=== PATIENT | female | born 1985 | race Caucasian/White ===

== ENCOUNTER 2016-06-19 22:14 | Emergency (ER) | payer OTHER ==
[~2016-06-19] VITALS: Ht 154.9 cm; Wt 69.9 kg
[~2016-06-19 22:14] MED LIST: LEVOIUD VAGRING
[2016-06-19 22:19] VITALS: TEMP 37; Ht 154.9 cm; Wt 69.9 kg
[2016-06-19] MEDS ORDERED: ACETAMINOPHEN 500 MG TAB PO STA (22:41)
[2016-06-19] MEDS ORDERED: ONDANSETRON 4MG OD TAB PO ONE (22:45)
[2016-06-19] MEDS ORDERED: ONDANSETRON HOME PACK 4MG OD TAB PO ONE (22:45)
[2016-06-19] MEDS ORDERED: NORGTAB39 PO (22:53)
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
[2016-06-20 00:05] VITALS: BP 98/51; PULSE 83; O2SAT 98
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
--- NOTE | 2016-06-20 07:28 | DIAGNOSTIC IMAGING REPORT ---
LEFT TIBIA/FIBULAR 2 VIEWS HISTORY: Fall. left mid escobar pain COMPARISON: None. FINDINGS: There is no fracture or dislocation. Soft tissues are unremarkable. No radiopaque foreign bodies. IMPRESSION: No fractures. Electronically signed by: Tylor Welsh M.D. 06/20/2016 7:26 AM Dictated Date/Time: 06/20/2016 7:25 AM
== END 2016-06-20 00:05 | disposition home or self-care (01) ==
LOC: C.EDB 22:14 → C.EDC 06-20 00:05
DX: S09.90XA Unspecified injury of head, initial encounter (principal); S80.811A Abrasion, right lower leg, initial encounter; S80.812A Abrasion, left lower leg, initial encounter; W22.8XXA Striking against or struck by other objects, initial encounter; Z90.49 Acquired absence of other specified parts of digestive tract; Z83.3 Family history of diabetes mellitus

== ENCOUNTER 2023-01-16 07:42 | Inpatient (IN) ==
[2023-01-16] MEDS ORDERED: OXYTOCIN 30 UNITS/NSS 30 UNITS/500 ML BAG IV PRN ×3 (07:51→15:50)
[2023-01-16] MEDS ORDERED: LIDOCAINE 1% LOCAL 20 ML VIAL INFIL PRN (07:51)
[2023-01-16 08:28] LABS: Hemoglobin 10.3 g/dl (12.0-16.0); Mean Corpuscular Hemoglobin 30.7 pg (25.0-34.0); Mean Corpuscular Hgb Conc 33.2 g/dL (32.0-36.0); Mean Corpuscular Volume 92.5 fL (80.0-100.0); Mean Platelet Volume 11.8 fL (9.4-12.4); Platelet Count 178 K/uL (130-400); RDW Coefficient of Variation 12.9 % (11.5-14.5); RDW Standard Deviation 43.1 fL (36.4-46.3); Red Blood Count 3.35 M/uL (4.20-5.40); White Blood Count 8.37 K/ul (4.8-10.8)
--- NOTE | 2023-01-16 08:43 | History & Physical Report ---
Date of Service January 16, 2023 Assessment & Plan (1) Gestational diabetes, diet controlled: Plan: 37-year-old -0-0-2 at 39 weeks and 4 days of gestation presenting today for induction of labor at term for GDM 1 and polyhydramnios, Vital signs stable afebrile, heart rate reassuring, GBS negative, Cervix favorable Plan to admit, monitor, labs, IV oxytocin per protocol, anticipate All questions were answered. (2) Irregular uterine contractions: (3) Polyhydramnios affecting in third trimester: (4) AMA (advanced maternal age) multigravida 35+: Admission and Anticipated Discharge Date Admission Date: January 16, 2023 History of Present Illness Primary Care Provider: NO PCP Patient is a 37-year-old -0-0-2 at 39 weeks and 4 day gestation who has been feeling irregular contractions for the last weeks but they stopped. She was scheduled for IOL at term for favorable cervix and polyhydramnios. JOEY was 23.7 and EFW 3400 gr on 01/12/23 No complaints today. No LOF/VB +FM Her has been complicated by, 1. GDM A1, diet-controlled gestational diabetes, gained 48 pounds 2. AMA, NIPT low risk, declined MSAFP, Allergies Allergy/AdvReac Type Severity Reaction Status Date / Time tuberculin, purified protein Allergy Severe REDNESS & Verified 01/16/23 08:31 deriva SWELLING AT SITE Home Medications Medication Instructions Recorded Confirmed Type Prilosec OTC 20 mg PO DAILY 01/06/23 01/06/23 History ferrous sulfate 325 mg (65 mg 325 mg PO DAILY 01/06/23 01/06/23 History iron) capsule,extended release [id number] 1 mg 1 tab PO DAILY 01/06/23 01/06/23 History tablet ferrous sulfate 325 mg (65 mg 325 mg PO DAILY #60 tabs 01/07/23 01/16/23 Rx iron) tablet vit no.95-ferrous 1 tab PO DAILY #90 tabs 01/07/23 01/16/23 Rx fumarate 28 mg-folic acid 800 mcg tablet Patient History Surgical History History of appendectomy Hx of cholecystectomy Social History Smoking Status: Former smoker Hx Alcohol Use: No Hx Substance Use: No Beliefs That Will Affect Care: None marital status: Single Current Living Situation: Significant Other Other Information That Helps Us Care for You: No Feels Safe at Home: Yes Safety Concerns: Feels Safe At This Time Assistive Devices: None OB History Full-term 's, 11 and 13 years ago, no complications 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 No history of STDs, no history of herpes, chlamydia, gonorrhea Review of Systems as per Subjective / HPI Physical Exam Constitutional: WD/WN, vitals as above well developed, well nourished and comfortable Genitourinary: normal external appearance OB Exam Abdomen: + vertex Manual OB Exam: + cervical dilation 2 cm, + cervical effacement 70% and + station -2 OB Exam Monitor Tracing: + external uterine monitor used and + category I Results & Data Vital Signs (Past 12 Hours) Vital Signs Temp Pulse BP 01/16/23 07:59 99 H 98/60 L 01/16/23 07:49 36.4 C L Laboratory Results Lab Results 01/16/23 Range/Units 08:05 WBC 8.37 (4.8-10.8) K/ul RBC 3.35 L (4.20-5.40) M/uL Hgb 10.3 L (12.0-16.0) g/dl Hct 31.0 L (37.0-47.0) % MCV 92.5 (80.0-100.0) fL MCH 30.7 (25.0-34.0) pg MCHC 33.2 (32.0-36.0) g/dL RDW Std Deviation 43.1 (36.4-46.3) fL RDW Coeff of Sohan 12.9 (11.5-14.5) % Plt Count 178 (130-400) K/uL MPV 11.8 (9.4-12.4) fL Code Status & VTE Plan VTE Prophylaxis Plan VTE Prophylaxis will be ordered: No (1) Gestational diabetes, diet controlled Trimester: third trimester Qualified Code(s): O24.410 - Gestational diabetes mellitus in , diet controlled
[2023-01-16] MEDS: LACTATED RINGER'S 1,000 ML IV PRN ×2 (09:08→12:23)
--- OUTSIDE RECORDS SUMMARY | 2023-01-16 09:10 | External Medical Summary | Summary of Care ---
Author Name Unknown Organization [facility] Address [address] [facility] [place] [address] Phone [phone] Care Team Providers Care Continuing Education Dean Name Role Phone Jourdan Olguin MD Primary Care Provider [phone] Reason for Visit * Reason Comments Return Visit Encounter Details Date Type Department Care Team (Late st Contact Info) Description 01/12/2023 11:15 AM EST Office Visit Gynecology/Obstetric s [facility] [address] [place] [address] Sue George CRNP [address] [place] [address] Supervision of high-risk , third trimester*; Multigravida of advanced maternal age in third trimester; Diet controlled gestational diabetes mellitus (GDM) in third trimester; Family history of von Willebrand disease; Uterine size date discrepancy ; Other specified related conditions, third trimester Allergies Active Allergy Reactions Criticality Noted Date Comments Tuberculin Ppd 03/07/2010 Should get preservative free in future documented as of this encounter (statuses as of 01/12/2023) Medications Medication Sig Dispensed Refills Start Date End Date Status Gummies 0.18-25 MG Oral Tablet Chewable Take by mouth. 0 Activ e B Complex Oral Capsule Take 1 Capsule by mouth in the morning. 0 Active Ventolin HFA 108 (90 Base) MCG/ACT Inhalation Aerosol SolutionIndications :Acute bronchitis, antibiotics not indicated Inhale 2 Puffs by mouth every 4 hours as needed for Wheezing or Dyspnea. 1 g 0 07/26/2022 Active Ferrous Sulfate 325 (65 Fe) MG Oral Tablet (Feosol) Take 1 Tablet by mouth daily. 30 Tablet 3 10/05/2022 Active Docusate Sodium 100 MG Oral Capsule (Colace) Take 1 Capsule by mouth daily as needed for Constipation. 30 Capsule 2 10/05/2022 Active Omeprazole 20 MG Oral Capsule Delayed Release (PriLOSEC) Take 1 Capsule by mouth in the morning. 30 Capsule 1 10/12/2022 Active Additional Information Patient not taking.Reported on 12/08/2022 TopDeejaysuch Ultra 2 w/Device KitIndications:Gest ational diabetes mellitus (GDM) in third trimester, gestational diabetes method of control unspecified Test blood sugars 4 times a day (fasting and one hour after 3 meals). 1 Kit 0 11/03/2022 Active TopDeejaysuch Ultra In Vitro Strip (Glucose Blood)Indications:G estational diabetes mellitus (GDM) in third trimester, gestational diabetes method of control unspecified Test blood sugars 4 times a day (fasting and one hour after 3 meals). 120 Strip 3 11/03/2022 Active LancetsIndications: Gestational diabetes mellitus (GDM) in third trimester, gestational diabetes method of control unspecified Test blood sugars 4 times a day (fasting and one hour after 3 meals). 120 Each 3 11/03/2022 Active documented as of this encounter (statuses as of 01/12/2023) Active Problems Problem Noted Date Diagnosed Date Genetic testing 12/13/2022 Overview: NEGATIVE familial hypercholesterolemia panel (4 genes). See scan reports from 11.27.2022 Current with histo ry of pre-term labor in third trimester 12/12/2022 Family history of von Willebrand disease 023 Overview: Patient's father with history of Von Willebrand's disease. Patient has never been tested for same. Agreeable to genetic counseling referral. Gestational diabetes mellitus (GDM) in third tri [facility] 11/08/2022 Overview: Diagnosed at 29 weeks Nutrition referral ordered Has TopDeejaysuch Ultra2 meter Lab Results Component Value Date/Time 50-G GESTATIONAL GLUCOSE, 1 HOUR - [facility] 146 (H) 10/26/2022 12:22 PM 100-G GESTATIONAL GLUCOSE, 1 HOUR - [facility] 192 (H) 11/02/2022 09:02 AM 100-G GESTATIONAL GLUCOSE, 2 HOUR - [facility] 165 (H) 11/02/2022 10:00 AM 100-G GESTATIONAL GLUCOSE, 3 HOUR - [facility] 94 11/02/2022 10:59 AM 100-G GESTATIONAL GLUCOSE, FASTING - [facility] 78 11/02/2022 07:53 AM HEMOGLOBIN A1C - [facility] 5.2 08/29/2018 02:49 PM 11/09/22: MFM ADAPT consult complete. Enrolled in [employer]. Instructions provided to report blood sugars each week for MFM review; continue diet controlled 11/14/22: RPM Stable; diet controlled 11/20/22- stable 11/27/22-stable 12/05/22: RPM Stable --KW 12/12/22- stable 12/19/22- stable 12/26/22- stable 01/02/23-stable 01/09/23- stable Last Assessment & Plan: Hortensia states sugars have been under excellent control on diet. Encouraged her to continue to submit to ADAPT. Multigravida of advanced maternal age in third t rimester 06/14/2022 Overview: Age 37 at ADELSO Qnatal low risk. Declines MSAFP testing. Declines MATERNAL MEDICINE referral. Supervision of high-risk , [facility] 06/14/2022 Overview: Estimated Date of Delivery: 01/19/23 Continue vitamin A positive. Rubella and varicella immune. Qnatal testing low risk. Declines MSAFP testing. Declines MATERNAL MEDICINE referral. S/p anatomy ultrasound. Has GDM. Hemoglobin is stable. Tdap vaccine completed. GBS culture at 36 weeks. contraception: tubal ligation. Desires to breastfeed. Getting breast pump through insurance. Note: Desires [facility] delivery. Advised patient to transfer care at 36 weeks. 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 Degeneration of lumbar intervertebral disc 02/15 Nolan's esophagus without dysplasia 08/07/2017 S/P laparoscopic fundoplication 08/07/2017 Gastroesophageal reflux disease without esophagi tis 07/19/2017 Estimated Date of Delivery Comme nts Yes 01/19/2023 Based on Ultraso und documented as of this encounter (statuses as of 01/12/2023) Resolved Problems Problem Noted Date Diagnosed Date Resolved Date Low-lying placenta 08/29/2022 3 Malaise and fatigue 10/11/2018 10/05/19 23 Low libido 10/11/2018 10/04/2022 Suprascapular neuropathy, right 12/19/2016 10/04/2022 UNSPECIFIED GASTRITIS 03/29/20102015 Abdominal pain, epigastric 03/29/2010 1 Acute pancreatitis 03/29/2010 6 Anxiety state 03/18/2010 10/04/2022 DIZZINESS 03/18/2010 11/24/2015 Shortness of breath 03/18/2010 11/24/19 16 Chest pain 03/18/2010 11/24/2015 Nausea 03/18/2010 11/24/2015 Overview: ICD-10 update of inactive term Irritable bowel syndrome 06/27/2004 Viral warts 05/26/2003 07/26/2016 Overview: ICD-10 update of inactive term ACUTE PHARYNGITIS 07/18/2002 06/09/2003 ACUTE URI NOS 07/18/2002 06/09/2003 Allergic rhinitis 07/18/2002 07/26/2016 THUMB, RIGHT HAND INJURY 06/26/2000 documented as of this encounter (statuses as of 01/12/2023) Immunizations Name Administration Dates Next Due SEASONAL INFLUENZA, PF, 6 M & Above, IM , (FLULAVAL or FLUZONE) 12/04/2018,01/06/2017 Seasonal Influenza, Split, I IV3, With Preserve, Inj 12/07/2015,12/16/2012,11/26/2009 12/16/2013 TDAP (age 10 and older)(Boostrix) 10/26/2022 TDAP (age 11 and older)(Adacel) 11/26/2009 documented as of this encounter Social History Tobacco Use Types Packs/Day Years Used Date Smoking Tobacco: Former Cigarettes 0.5 1 Q uit: 02/05/2004 Smokeless Tobacco: Never Alcohol Use Standard Drinks/Week Comments No 0 (1 standard drink = 0.6 oz pur e alcohol) denies in 2022 PHQ-2 Answer Date Recorded PHQ Adult Total Score 0 10/04/2022 Hunger Vital Sign Answer Date Recorded Within the past 12 months, y ou worried that your food would run out before you got the money to buy more. Never true 09/06/19 23 Within the past 12 months, t he food you bought just didn't last and you didn't have money to get more. Never true 09/05/2022 [place] Depression Scale Answer Date Recorded [place] Depression Scale Total 0 12/08/2022 The thought of harming myself has occurred to me . Never 12/08/2022 Estimated Date of Delivery Comme nts Yes 01/19/2023 Based on Ultraso und Sex and Gender Information Value Date Recorded Sex Assigned at Female 05/31/2022 9:11 PM EDT Gender Identity Female 05/31/2022 9:11 PM EDT Sexual Orientation Straight 05/31/2022 9: 11 PM EDT Job Start Date Occupation Industry Not on file Not on file Not on file documented as of this encounter Last Filed Vital Signs Vital Sign Reading Time Taken Comments Blood Pressure 112/64 01/12/2023 11:09 AM EST Pulse - - Temperature - - Respiratory Rate - - Oxygen Saturation - - Inhaled Oxygen Concentration - - Weight 80.3 kg (177 lb) 01/12/2023 11:09 AM EST Height 160 cm (5' 3") 01/12/2023 11:09 AM EST Body Mass Index 31.35 01/12/2023 11:09 AM EST documented in this encounter Functional Status Functional Status Response Date of Assess ment Are you deaf or do you have serious difficulty h earing? No 07/18/2017 Are you blind or do you have serious difficulty seeing, even when wearing glasses? No 07/18/2017 Do you have serious difficul ty walking or climbing stairs? (5 years old or older) No 07/18/2017 Do you have difficulty dress ing or bathing? (5 years old or older) No 07/18/2017 Because of a physical, menta l, or emotional condition, do you have difficulty doing errands alone such as visiting a doctor s office or shopping? (15 years old or older) No 07/19/19 18 Cognitive Status Response Date of Assessm ent Because of a physical, menta l, or emotional condition, do you have serious difficulty concentrating, remembering, or making decisions? (5 years old or older) No 07/18/2017 documented as of this encounter Progress Notes * Sue George CRNP - 01/12/2023 11:11 AM EST 39w0d GDMA1, submits glucose readings for ADAPT review. Baby is active. No leaking/bleeding. Still with ctx, q10-25 mins. Desires cervical exam. 3-4 cm. S>D. Growth scan today, preliminary read shows EFW 47%, JOEY 23.7 cm. Pt agreeable to scheduling IOL due to GDMA 1, scheduled on 01/16. Pt aware. Labor precautions reviewed. Return in 1 week. Electrical Installation Inspector Documentation Provider requested retail property manager. Name of retail property manager: KRISSY Arevalo LPN * Katie Chiu LPN - 01/12/2023 11:09 AM EST 39w0d Would like cervix checked Went to L&D last sat and was 3 cm dilated documented in this encounter Plan of Treatment Health Maintenance Due Date Last Done Comments COVID-19 Vaccine (#1) 1986 Influenza Vaccine (FLU shot) (#1) 2022 12/04/2018, 01/06/2017, 12/07/2015, Additional history exists Depression Screening 10/05/2023 10/04/2022 Nolan's Esophagus Surveilance 10/24/2024 10/24/2021, 08/16/2020, 12/26/2018, Additional history exists Diabetes Screening 01/06/2026 01/06/2023, 0 08/27/2021, 09/12/2019, Additional history exists PAP SMEAR-EVERY 5 YRS,AGES 21-100 06/20/2026 06/20/2021, 10/14/2018, 02/13/2017, Additional history exists DTaP,Tdap,and Td Vaccines (8 - Td or Tdap) 10/26/2032 10/26/2022, 11/26/2009, 02/25/2002, Additional history exists Hepatitis B Completed 08/25/1998, 02/05, 12/28/1997 Pap Smear Discontinued 06/20/2021, 10/2018, 02/13/2017, Additional history exists GARDASIL-HPV IMMUNIZATION SERIES Aged Out No longer eligible based on patient's age to complete this topic MENINGOCOCCAL (MENACTRA/MENVEO) Aged Out No longer eligible based on patient's age to complete this topic Pneumococcal Vaccine: Pediatrics (0 to 5 Years) and At-Risk Patients (6 to 64 Years) Aged Out No longer eligible based on patient's age to complete this topic documented as of this encounter Medical Devices Not on filedocumented as of this encounter Results * US PREG FOLLOW-UP EACH FETUS (01/12/2023 12:25 PM EST) Anatomical Region Laterality Modality Pelvis, Body Ultrasound 01/12/2023 12:3 9 PM EST Impressions 01/12/2023 12:37 PM EST IMPRESSION 1. Growth within normal limits utilizing ADELSO from initial scan, as above. 2. JOEY is greater than the 95th percentile with MVP of 7.3 cm 3. Vertex presentation. Narrative 01/12/2023 12:37 PM EST EXAM US PREG FOLLOW-UP EACH FETUS - 01/12/2023 12:25 pm HISTORY Growth and JOEY; S>D, GMDA1 COMPARISON 05/30/2022 TECHNIQUE Sonographic examination performed. FINDINGS General : Chance Presentation: Vertex heart rate: 125 bpm Amniotic Fluid: MVP 7.3 cm JOEY: 23.7 cm which is greater than the 95th percentile for this stage of . Placenta: Anterior Anatomy 4-chamber view: Seen Stomach: Seen Kidneys: Seen Bladder: Seen Biometry The previous study of 05/30/2022 estimated the date of delivery of 01/19/2023. Utilizing that date, current gestational age is 39 weeks 0 days. Biparietal diameter: 8.8 cm, 35w 6d Head circumference: 34.0 cm, 39w 2d Abdominal circumference: 34.7 cm, 38w 5d Femur length: 7.4 cm, 37w 6d Humeral length: 6.5 cm, 37w 4d HC/AC: 0.98, within normal limits EFW: 3403 g +/- 497 g which is the 47th percentile. Utilizing the date of delivery obtained from the initial scan, growth of the BPD, HC, AC, femur and humerus is within normal limits. The BPD growth is lower range of normal. Procedure Note Venkata No MD - 01/12/2023 EXAM US PREG FOLLOW-UP EACH FETUS - 01/12/2023 12:25 pm HISTORY Growth and JOEY; S>D, GMDA1 COMPARISON 05/30/2022 TECHNIQUE Sonographic examination performed. FINDINGS General : Chance Presentation: Vertex heart rate: 125 bpm Amniotic Fluid: MVP 7.3 cm JOEY: 23.7 cm which is greater than the 95th percentile for this stage ofpregnancy. Placenta: Anterior Anatomy 4-chamber view: Seen Stomach: Seen Kidneys: Seen Bladder: Seen Biometry The previous study of 05/30/2022 estimated the date of delivery of01/19/2023. Utilizing that date, current gestational age is 39 weeks 0days. Biparietal diameter: 8.8 cm, 35w 6d Head circumference: 34.0 cm, 39w 2d Abdominal circumference: 34.7 cm, 38w 5d Femur length: 7.4 cm, 37w 6d Humeral length: 6.5 cm, 37w 4d HC/AC: 0.98, within normal limits EFW: 3403 g +/- 497 g which is the 47th percentile. Utilizing the date of delivery obtained from the initial scan, growth ofthe BPD, HC, AC, femur and humerus is within normal limits. The BPDgrowth is lower range of normal. IMPRESSION IMPRESSION 1. Growth within normal limits utilizing ADELSO from initial scan, asabove. 2. JOEY is greater than the 95th percentile with MVP of 7.3 cm 3. Vertex presentation. Sue Saldana Backer KRISSY OLIVOO UND documented in this encounter Visit Diagnoses Diagnosis Supervision of high-risk , third trimester- Primary Multigravida of advanced maternal age in third trimester Diet controlled gestational diabetes mellitus (GDM) in third trimester Family history of von Willebrand disease Family history of other blood disorders Uterine size date discrepancy Uterine size date discrepancy, antepartum condition or complication Other specified related conditions, third trimester Supervision of high-risk , third trimester Uterine size date discrepancy Uterine size date discrepancy, antepartum condition or complication Other specified related conditions, third trimester documented in this encounter Advance Directives Latest Code Status on File Code Status Date Activated Date Inactivated Comments Full Code 07/18/2017 4:12 PM 07/19/2017 3:53 PM This order reflects the patients wishes and were consensually agreed upon. Code Status History Code Status Date Activated Date Inactivated Comments Full Code 07/18/2017 11:07 AM 07/18/2017 4:12 PM This order reflects the patients wishes and were consensually agreed upon. Care Teams Continuing Education Dean Relationship Specialty Start Date End Date Jourdan Olguin MD [address] [place] [address] PCP - General Family Medicine 12/16/12 documented as of this encounter
--- OUTSIDE RECORDS SUMMARY | 2023-01-16 09:10 | External Medical Summary | Summary of Care ---
Author Name Unknown Organization [facility] Address [address] [facility] [place] [address] Phone [phone] Care Team Providers Care Gut Dropper Name Role Phone Jourdan Olguin MD Primary Care Provider [phone] Reason for Visit * Reason Onset Date Comments Test Results 01/12/2023 Encounter Details Date Type Department Care Team (Late st Contact Info) Description 01/12/2023 Telephone Hematology/Oncology Treatment, [place] [address] [place] [address] Ross Napier MD [address] [place] [address] Test Results Allergies Active Allergy Reactions Criticality Noted Date [...] Additional Information Patient not taking.Reported on 12/08/2022 Qualifacts Systemsuch Ultra 2 w/Device KitIndications:Gest ational diabetes mellitus (GDM) in third trimester, gestational diabetes method of control unspecified Test blood sugars 4 times a day (fasting and one hour after 3 meals). 1 Kit 0 11/03/2022 Active Qualifacts Systemsuch Ultra In Vitro Strip (Glucose Blood)Indications:G estational [...] Gestational diabetes mellitus (GDM) in third tri mester 11/08/2022 Overview: Diagnosed at 29 weeks Nutrition referral ordered Has OneTouch Ultra2 meter Lab Results Component Value Date/Time [...] of advanced maternal age in third t [facility] 06/14/2022 Overview: Age 37 at ADELSO Qnatal low risk. Declines MSAFP testing. Declines MATERNAL MEDICINE referral. Supervision of high-risk , [facility] 06/14/2022 Overview: Estimated Date of Delivery: 01/19/23 Continue vitamin A positive. Rubella and varicella immune. Qnatal testing low risk. Declines MSAFP testing. Declines MATERNAL MEDICINE referral. S/p anatomy ultrasound. Has GDM. Hemoglobin is stable. Tdap vaccine completed. GBS culture at 36 weeks. contraception: tubal ligation. Desires to breastfeed. Getting breast pump through insurance. Note: Desires [facility] [place] delivery. Advised patient to transfer care at [...] money to get more. Never true 09/05/2022 [place] Depression Scale Answer Date Recorded [place] Depression Scale Total 0 12/08/2022 The thought [...] on file documented as of this encounter Functional Status Functional Status Response [...] No 07/18/2017 documented as of this encounter Miscellaneous Notes * Telephone Encounter - Devika Rooney RN - 01/12/2023 2:[address] Napier: "Blood workup done on 01/04/2023: - PT 12.2 - PTT -> 24 seconds - Factor VIII clotting assay -> 233 - Ristocetin cofactor -> 49% - Von Willebrand factor antigen -> 129%. Overall no abnormal noted in the above blood workup findings, elevated factor VIII level and Ristocetin cofactor could be related to the ongoing . No further workup is indicated at this time. " MyG sent. documented in this encounter Plan of Treatment [...] Not on filedocumented as of this encounter Advance Directives Latest Code Status [...] and were consensually agreed upon. Care Teams Gut Dropper Relationship Specialty Start Date End Date Jourdan Olguin MD [address] [facility] [place] [address] PCP - General Family Medicine 12/16/12 documented as of this encounter
--- OUTSIDE RECORDS SUMMARY | 2023-01-16 09:10 | External Medical Summary | Summary of Care ---
Author Name Unknown Organization [facility] Address [address] [facility] [address] Phone [phone] Care Team Providers Care Quality Technician Fiberglass Name Role Phone Jourdan Olguin MD Primary Care Provider [phone] Encounter Details Date Type Department Care Team (Late st Contact Info) Description 01/08/2023 Orders Only Gynecology/Obstetrics [facility] [address] [place], [place] [id number] Vera Og PA-C [address] [place] [address] Allergies Active Allergy Reactions Criticality Noted Date Comments Tuberculin Ppd 03/07/2010 Should get preservative free in future documented as of this encounter (statuses as of 01/08/2023) Medications Medication Sig Dispensed Refills Start Date [...] Additional Information Patient not taking.Reported on 12/08/2022 Magazingauch Ultra 2 w/Device KitIndications:Gest ational diabetes mellitus (GDM) in third trimester, gestational diabetes method of control unspecified Test blood sugars 4 times a day (fasting and one hour after 3 meals). 1 Kit 0 11/03/2022 Active Magazingauch Ultra In Vitro Strip (Glucose Blood)Indications:G estational [...] as of this encounter (statuses as of 01/08/2023) Active Problems Problem Noted Date Diagnosed Date [...] 12/12/22- stable 12/19/22- stable 12/26/22- stable 01/02/23-stable Last Assessment & Plan: Hortensia states sugars have been under excellent control on diet. Encouraged her to continue to submit to ADAPT. Multigravida of advanced maternal age in [facility] 06/14/2022 Overview: Age 37 at ADELSO Qnatal low risk. Declines MSAFP testing. Declines MATERNAL MEDICINE referral. Supervision of high-risk , [facility] 06/14/2022 Overview: Estimated Date of Delivery: 01/19/23 Continue vitamin A positive. Rubella and varicella immune. Qnatal testing low risk. Declines MSAFP testing. Declines MATERNAL MEDICINE referral. S/p anatomy ultrasound. Has GDM. Hemoglobin is stable. Tdap vaccine completed. GBS culture at 36 weeks. contraception: tubal ligation. Desires to breastfeed. Getting breast pump through insurance. Note: Desires [facility] [place] delivery. Advised patient to transfer care at 36 weeks. 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 Never true 09/05/2022 [place] Depression Scale Answer Date Recorded [place] Depression Scale Total 0 12/08/2022 The thought [...] No 07/18/2017 documented as of this encounter Plan of Treatment Upcoming Encounters Date Type Department Care Team (Late st Contact Info) Description 01/12/2023 11:15 AM EST Office Visit Gynecology/Obstetrics [address] [place] [address] Sue George CRNP [address] [place] [address] Health Maintenance Due Date Last Done Comments [...] Not on filedocumented as of this encounter Procedures Procedure Name Priority Date/Time Associated Diagnosis Comments CHEMISTRY-OUTSIDE Routine 01/06/2023 documented in this encounter Results * (ABNORMAL) CHEMISTRY-OUTSIDE (01/06/2023) Not all results display below - see scan for full detail OUTSIDE LAB (SEE SCANNED REPORT) Comment:SEE SCAN; CBCD, CMP CREATININE-OUTSID E LAB 0.60 0.6 - 1.2 MG/DL OUTSIDE LAB (SEE SCANNED REPORT) EGFR-OUTSIDE LAB 117.3 ML/MIN/1.7 3M2 OUTSIDE LAB (SEE SCANNED REPORT) POTASSIUM-OUTSIDE LAB 3.5 3.5 - 5.1 MMOL/L OUTSIDE LAB (SEE SCANNED REPORT) GLUCOSE-OUTSIDE LAB 92 70 - 99 MG/DL OUTSIDE LAB (SEE SCANNED REPORT) HOURS FASTING OUTSID E LAB (SEE SCANNED REPORT) TRIGLYCERIDES-OUT SIDE LAB OUTSIDE LAB (SEE SCANNED REPORT) CHOLESTEROL-OUTSI DE LAB OUTSIDE LAB (SEE SCANNED REPORT) HDL-OUTSIDE LAB OUTS DEYSI LAB (SEE SCANNED REPORT) CHOL/HDL RATIO-OUTSIDE LAB OUTSIDE LA B (SEE SCANNED REPORT) LDL (CALCULATED)-OUTS DEYSI LAB OUTSIDE LAB (SEE SCANNED REPORT) LDL (DIRECT MEASURE)-OUTSIDE LAB OUTSIDE LAB (SEE SCANNED REPORT) HEMOGLOBIN, [id number] LAB OUTSIDE LAB (SEE SCANNED REPORT) PHOSPHORUS-OUTSID E LAB OUTSIDE LAB (SEE SCANNED REPORT) PTH-OUTSIDE LAB OUTS DEYSI LAB (SEE SCANNED REPORT) MICROALBUMIN RATIO-OUTSIDE LAB OUTSIDE LA B (SEE SCANNED REPORT) PROTEIN, UA-OUTSIDE LAB OUTSIDE LAB (SEE SCANNED REPORT) HEMOGLOBIN-OUTSID E LAB 10.1(L) 12.0 - 16.0 G/DL OUTSIDE LAB (SEE SCANNED REPORT) 01/06/2023 Serena Marquez MD LABORATORY OUTSIDE LAB (SEE SCANNED REPORT) documented in this encounter Advance Directives Latest [...] and were consensually agreed upon. Care Teams Quality Technician Fiberglass Relationship Specialty Start Date End Date Jourdan Olguin MD [address] [place] [address] PCP - General Family Medicine 12/16/12 documented as of this encounter
[2023-01-16] MEDS ORDERED: ePHEDrine sulfate 50 MG/ML AMP ONE (11:50)
[2023-01-16] MEDS ORDERED: fentaNYL citrate PF 100 MCG/2 ML VIAL ONE (11:50)
[2023-01-16] MEDS ORDERED: fentANYL 2 MCG/ML BUPIVacaine 0.125%-NSS 100ML BAG ONE (11:50)
[2023-01-16] MEDS ORDERED: SODIUM CHLORIDE 0.9% PF INJ 10 ML VIAL ONE (11:50)
[2023-01-16] MEDS ORDERED: BUPIVACAINE 0.25% PF 30 ML VIAL ONE (11:50)
[2023-01-16] MEDS ORDERED: LIDOCAINE 2%/EPINEPHRINE 1:200,000 20 ML PF ONE (11:51)
--- NOTE | 2023-01-16 12:47 | Anesthesiology Consultation ---
Date of Service January 16, 2023 Assessment & Plan Chart Review Chart Review: Patient NOT seen in Pre Admission Testing and Acceptable Risk for Labor Epidural Consults Requested none ASA ASA2 Proposed Anesthesia Anesthesia Type: Labor Epidural Risk / Benefits Reviewed With: PT / POA / Parent / Guardian, Accepts Plan and Informed Consent Obtained History Height/Weight Height: 5 ft 2 in Weight: 80.286 kg Allergies Allergy/AdvReac Type Severity Reaction Status Date / Time tuberculin, purified protein Allergy Severe REDNESS & Verified 01/16/23 08:31 deriva SWELLING AT SITE Medications Home Medications Medication Instructions Recorded Confirmed Last Taken Prilosec OTC 20 mg PO DAILY 01/06/23 01/06/23 01/06/23 ferrous sulfate 325 mg (65 mg 325 mg PO DAILY 01/06/23 01/06/23 01/06/23 iron) capsule,extended release [id number] 1 mg 1 tab PO DAILY 01/06/23 01/06/23 Unknown tablet ferrous sulfate 325 mg (65 mg 325 mg PO DAILY #60 tabs 01/07/23 01/16/23 Unknown iron) tablet vit no.95-ferrous 1 tab PO DAILY #90 tabs 01/07/23 01/16/23 Unknown fumarate 28 mg-folic acid 800 mcg tablet Active Medications Generic Name Dose Route Start Last Admin Trade Name Freq PRN Reason Stop Dose Admin Lactated Ringer's 1,000 mls @ 125 mls/hr 01/16/23 07:51 01/16/23 12:23 Lr IV 01/18/23 07:50 125 mls/hr .Q8H PRN Administration L&D Protocol Protocol Oxytocin 30 units in 500 mls @ 8 mls/hr 01/16/23 08:43 01/16/23 10:45 Pitocin 30 Units/Nss IV 01/18/23 08:42 0.48 units/hr .Q24H PRN 8 mls/hr Labor Induction/Augmentation Titration Protocol 0.48 UNITS/HR Exercise / Class Metabolic Activity II 4-5 Yardwork/Stairs/Walk up hill Past Surgical History Surgical History History of appendectomy Hx of cholecystectomy Past Anesthesia History No Hx of Anesthesia Complications and No Family Hx of Anesthesia Complications History of PONV No Hx of PONV and No Hx of Motion Sickness Social History Smoking Status: Former smoker Hx Alcohol Use: No Hx Substance Use: No substance use type: does not use Physical Exam Vital Signs Last Vital Signs Temp 36.4 C L 01/16/23 07:49 Pulse 90 01/16/23 12:44 Resp 18 01/16/23 10:46 BP 97/57 L 01/16/23 12:44 Pulse Ox 100 01/16/23 12:42 ENMT Mouth: no dentition abnormality Thyromental Distance: > or= 3.5 Finger Breadths Mallampati Class: II Neck normal visual inspection Respiratory normal respiratory effort Auscultation: lungs clear to auscultation bilaterally Cardiovascular Rate/Rhythm: regular rate and regular rhythm Psychiatric Orientation: alert Testing Laboratory Results 01/16/23 08:05
[2023-01-16] MEDS ORDERED: BUPIVACAINE 0.25% PF 30 ML VIAL EPI STA (12:48)
[2023-01-16] MEDS ORDERED: ePHEDrine sulfate 50 MG/ML AMP IV PRN (12:48)
[2023-01-16] MEDS ORDERED: LIDOCAINE 2% MPF LOCAL 5 ML VIAL EPI PRN (12:48)
[2023-01-16] MEDS ORDERED: ROPIVACAINE 0.5% PF 5 MG/ML 20 ML VIAL EPI PRN (12:48)
[2023-01-16] MEDS ORDERED: diphenhydrAMINE 50 MG/ML VIAL IV PRN (12:48)
[2023-01-16] MEDS ORDERED: ONDANSETRON INJ 2 MG/ML 2 ML VIAL IV PRN (12:48)
[2023-01-16] MEDS ORDERED: NALBUPHINE HCL 5 MG in SYRINGE 0 ML IV PRN (12:48)
[2023-01-16] MEDS ORDERED: fentANYL 2 MCG/ML BUPIVacaine 0.125%-NSS 100ML BAG EPI PRN (12:48)
[2023-01-16] MEDS ORDERED: SODIUM CHLORIDE 0.9% PF INJ 10 ML VIAL EPI PRN (12:48)
[2023-01-16] MEDS ORDERED: NALOXONE HCL 1 MG in SODIUM CHLORIDE 0.9% 1,000 ML IV PRN (12:48)
[2023-01-16] MEDS ORDERED: SODIUM CHLORIDE 0.9% PF INJ 10 ML VIAL EPI STA (12:48)
[2023-01-16] MEDS ORDERED: LIDOCAINE 2%/EPINEPHRINE 1:200,000 20 ML PF EPI STA (12:48)
[2023-01-16] MEDS ORDERED: fentaNYL citrate PF 100 MCG/2 ML VIAL EPI STA (12:48)
[2023-01-16] MEDS ORDERED: fentaNYL citrate PF 100 MCG/2 ML VIAL EPI PRN (12:48)
[2023-01-16] MEDS ORDERED: BUPIVACAINE 0.25% PF 30 ML VIAL EPI PRN (12:48)
[2023-01-16] MEDS ORDERED: NALOXONE HCL 0.4 MG/1 ML VIAL/CARP IV PRN (12:48)
--- NOTE | 2023-01-16 13:29 | Obstetrical Progress Note ---
Date of Service January 16, 2023 Assessment & Plan Admission and Anticipated Discharge Date Admission Date: January 16, 2023 Subjective Patient is reevaluated. She has epidural and comfortable now. Vital signs stable afebrile, heart rate category 1, [place] contractions every 2 to 4 minutes, Vaginal exam, cervix is 3 cm, 70%, bulging bag, AROM to clear fluid obtained, Continue to monitor closely Results & Data Vital Signs (Past 12 Hours) Vital Signs Temp Pulse Resp BP Pulse Ox 01/16/23 13:27 97 H 100 01/16/23 13:22 89 100 01/16/23 13:20 98 H 109/63 01/16/23 13:17 94 H 100 01/16/23 13:12 95 H 100 01/16/23 13:08 16 01/16/23 13:08 36.6 C 16 01/16/23 13:07 90 100 01/16/23 13:04 91 H 95/59 L 01/16/23 13:02 88 100 01/16/23 12:59 85 97/54 L 01/16/23 12:57 88 100 01/16/23 12:55 87 99/57 L 01/16/23 12:52 96 H 100 01/16/23 12:47 95 H 100 01/16/23 12:46 101 H 94/56 L 01/16/23 12:44 90 97/57 L 01/16/23 12:42 92 H 95/58 L 100 01/16/23 12:40 89 97/62 L 01/16/23 12:38 90 105/57 L 01/16/23 12:37 117 H 99 01/16/23 12:32 106 H 100 01/16/23 12:27 87 100 01/16/23 12:22 91 H 99 01/16/23 12:17 85 99 01/16/23 12:12 82 100 01/16/23 12:11 84 104/71 01/16/23 10:46 85 18 120/56 L 01/16/23 09:45 86 18 101/56 L 01/16/23 07:59 99 H 98/60 L 01/16/23 07:49 36.4 C L
[2023-01-16] MEDS ORDERED: bisacodyL 10 MG SUPP PR PRN (15:50)
[2023-01-16] MEDS ORDERED: BENZOCAINE 20% SPRY 85 APPLN/85 GM CAN EXT PRN (15:50)
[2023-01-16] MEDS ORDERED: ACETAMINOPHEN 325 MG TAB PO PRN (15:50)
[2023-01-16] MEDS ORDERED: MEASLES, MUMPS & RUBELLA VIRUS VACCINE (MMR) VIAL SQ ONE (15:50)
[2023-01-16] MEDS ORDERED: HYDROCORTISONE ACETATE 25 MG SUPP PR PRN (15:50)
[2023-01-16] MEDS ORDERED: DIPHTHERIA/TETANUS/PERTUSSIS Vaccine (Tdap, Age 7+yrs) 0.5mL SYR/VL IM ONE (15:50)
--- NOTE | 2023-01-16 15:53 | Delivery Summary ---
Vaginal Delivery Summary Date of Service January 16, 2023 Vaginal Delivery Summary Patient was found to be fully dilated and desires to push. She pushed with 2 contractions and delivered the head and then shoulders with minimal traction without difficulty. The baby was handed off to the mother. The cord was clampedx2 and cut at 1 minute. The vagina and perineum were checked and found to have small 1st degree perineal laceration. It was repaired with 2/0 vicryl. The placenta was delivered spontaneously as intact and complete. The uterus was explored and found to be empty. EBL was 200 ml. The fundus was firm The baby was a viable male , Apgars 8/9, the weight is pending The mother and the baby tolerated the procedure well. No complications happened and I was present during whole procedure.
--- NOTE | 2023-01-16 18:10 | Anesthesia Procedure Note ---
Date of Service January 16, 2023 Anesthesia Post Epidural Note Vital Signs Vital Signs: Temp Pulse Resp BP Pulse Ox 36.6 C 100 H 18 109/58 L 100 01/16/23 13:08 01/16/23 18:04 01/16/23 15:05 01/16/23 18:04 01/16/23 15:47 Notes Mental Status: alert / awake / arousable Nausea / Vomiting: adequately controlled Pain: adequately controlled Airway Patency, RR, SpO2: stable & adequate BP & HR: stable & adequate Hydration State: stable & adequate Neuraxial Anesthesia: was administered and sensory block is resolving Anesthetic Complications: no major complications apparent and Pt Satisfied with anesthetic care Epidural: Removed without complications and With tip intact
[2023-01-16] MEDS: IBUPROFEN 600 MG TAB PO PRN ×2 (19:30→23:56)
[2023-01-16] MEDS: DOCUSATE SODIUM 100 MG CAP PO SCH (20:46)
[2023-01-17] MEDS: IBUPROFEN 600 MG TAB PO PRN ×4 (04:15→19:55)
[2023-01-17 06:18] LABS: Hemoglobin 8.4 g/dl (12.0-16.0); Mean Corpuscular Hemoglobin 30.8 pg (25.0-34.0); Mean Corpuscular Hgb Conc 33.6 g/dL (32.0-36.0); Mean Corpuscular Volume 91.6 fL (80.0-100.0); Mean Platelet Volume 11.7 fL (9.4-12.4); Platelet Count 172 K/uL (130-400); RDW Standard Deviation 42.9 fL (36.4-46.3); Red Blood Count 2.73 M/uL (4.20-5.40)
[2023-01-17] MEDS ORDERED: FERROUS SULFATE 325 MG TAB PO SCH (08:00)
[2023-01-17] MEDS: PRENATAL VITAMIN 1 TAB PO SCH (08:46)
[2023-01-17] MEDS: DOCUSATE SODIUM 100 MG CAP PO SCH ×2 (08:46→19:55)
--- NOTE | 2023-01-17 10:23 | Obstetrical Progress Note ---
Date of Service January 17, 2023 Subjective Ambulation: ambulating normally Voiding: no voiding problems Passing Gas:: Yes Diet Tolerance:: regular diet Lochia:: Small Feeding Type:: breast feeding Current Pain Level(1-10): 0 doing well Physical Exam Constitutional WD/WN, vitals as above Gastrointestinal (Abdomen) Inspection/Auscultation: abdomen normal to inspection Musculoskeletal Extremities: extremities normal to inspection Skin no rashes, warm and dry Neurologic patellar DTR's 2+ bilat, sensation intact Psychiatric A+Ox3, euthymic affect Results & Data Vital Signs (Past 12 Hours) Vital Signs Temp Pulse Resp BP O2 Del Method 01/17/23 08:35 36.9 C 83 18 107/73 Room Air 01/17/23 04:15 36.8 C 85 16 96/65 L Room Air 01/16/23 23:45 36.9 C 91 H 18 99/66 L Room Air Laboratory Results Laboratory Results - last 72 hr 01/16/23 01/16/23 01/16/23 08:05 08:05 08:05 WBC 8.37 RBC 3.35 L Hgb 10.3 L Hct 31.0 L MCV 92.5 MCH 30.7 MCHC 33.2 RDW Std Deviation 43.1 RDW Coeff of Sohan 12.9 Plt Count 178 MPV 11.8 Blood Type A Positive Cancelled Antibody Screen NEGATIVE Cancelled 01/17/23 05:54 WBC 11.80 H RBC 2.73 L Hgb 8.4 L Hct 25.0 L MCV 91.6 MCH 30.8 MCHC 33.6 RDW Std Deviation 42.9 RDW Coeff of Sohan 13.0 Plt Count 172 MPV 11.7 Blood Type Antibody Screen
[2023-01-17] MEDS: FERROUS SULFATE 325 MG TAB PO SCH (19:56)
[2023-01-17] MEDS ORDERED: bisacodyL 5 MG TABEC PO SCH (20:00)
[2023-01-18 06:51] LABS: Hematocrit (blood only) 25.8 % (37.0-47.0); Hemoglobin 8.6 g/dl (12.0-16.0)
[2023-01-18] MEDS: IBUPROFEN 600 MG TAB PO PRN (07:58)
[2023-01-18] MEDS: PRENATAL VITAMIN 1 TAB PO SCH (08:15)
[2023-01-18] MEDS: DOCUSATE SODIUM 100 MG CAP PO SCH (08:15)
[2023-01-18] MEDS: FERROUS SULFATE 325 MG TAB PO SCH (09:12)
--- NOTE | 2023-01-18 09:15 | Obstetrical Progress Note ---
Date of Service January 18, 2023 Assessment & Plan Admission and Anticipated Discharge Date Admission Date: January 16, 2023 Subjective Patient is seen and examined. She feels well, no complaints. Ambulating without dizziness Voiding without difficulty Tolerating regular diet with out N&V Bleeding is minimal No fever/ chills/ CP/ SOB/ N&V/ Leg pain Breast feeding without problems Vital Signs Temp Pulse Resp BP Pulse Ox O2 Del Method 01/18/23 08:00 37 C 99 H 16 117/79 97 Room Air 01/17/23 23:30 36.8 C 91 H 18 101/64 98 Room Air Lab Results 01/16/23 01/16/23 01/16/23 Range/Units 08:05 08:05 08:05 WBC 8.37 (4.8-10.8) K/ul RBC 3.35 L (4.20-5.40) M/uL Hgb 10.3 L (12.0-16.0) g/dl Hct 31.0 L (37.0-47.0) % MCV 92.5 (80.0-100.0) fL MCH 30.7 (25.0-34.0) pg MCHC 33.2 (32.0-36.0) g/dL RDW Std Deviation 43.1 (36.4-46.3) fL RDW Coeff of Sohan 12.9 (11.5-14.5) % Plt Count 178 (130-400) K/uL MPV 11.8 (9.4-12.4) fL Blood Type A Positive Cancelled Antibody Screen NEGATIVE Cancelled 01/17/23 01/18/23 Range/Units 05:54 06:13 WBC 11.80 H (4.8-10.8) K/ul RBC 2.73 L (4.20-5.40) M/uL Hgb 8.4 L 8.6 L (12.0-16.0) g/dl Hct 25.0 L 25.8 L (37.0-47.0) % MCV 91.6 (80.0-100.0) fL MCH 30.8 (25.0-34.0) pg MCHC 33.6 (32.0-36.0) g/dL RDW Std Deviation 42.9 (36.4-46.3) fL RDW Coeff of Sohan 13.0 (11.5-14.5) % Plt Count 172 (130-400) K/uL MPV 11.7 (9.4-12.4) fL Blood Type Antibody Screen PE: General: Alert, orientedx3, NAD Abd: soft, NT, fundus firm, below Umbilicus Perineum intact, Lochia rubra minimal Ext; NT, no edema AP: 37 yo s/p , ppd# 2 VSS Afebrile doing well Continue routine care All questions were answered D/C home , f/u in office Results & Data Vital Signs (Past 12 Hours) Vital Signs Temp Pulse Resp BP Pulse Ox O2 Del Method 01/18/23 08:00 37 C 99 H 16 117/79 97 Room Air 01/17/23 23:30 36.8 C 91 H 18 101/64 98 Room Air
== END 2023-01-18 11:30 | disposition home or self-care (01) | DRG 807 ==
LOC: 4S1 07:42 → 4E2 18:21

== ENCOUNTER 2023-01-22 12:31 | Inpatient (IN) ==
--- NOTE | 2023-01-22 13:01 | Emergency Department Note ---
Impression & Plan Endomyometritis, Retained prod concept-[facility] ED Provider Note NAME: LUKE HALEY AGE: 37 SEX: F : 1985 ARRIVES VIA: Walk-In INFORMANT: Patient, ED PROVIDER(S): Serge Holland MD CHIEF COMPLAINT: Shoulder pain, fevers and chills MEDICAL DECISION MAKING: Patient presents for abdominal pain fever and chills in setting of being recently . IV was established labs obtained. Patient was ordered blood cultures lactate procalcitonin IV fluids Toradol and Tylenol. Patient was also ordered empiric antibiotics. Ultrasound also obtained along with a chest x-ray and bio fire. Patient's blood work shows a white count of 13 with a hemoglobin of 10.9. Hemoglobin is improved compared to several days ago with normal platelet count. Kidney function unremarkable. Procalcitonin is not elevated bio fire negative. Chest x-ray clear. Patient's ultrasound does show concern for possible retained products versus endometrial polyp. Given the possibility of retained products and possible endometritis given the patient's recent status and associated fever and chills with white count of 13 I did speak the on-call HSE SPECIALIST physician Dr. Lafleur who evaluated the patient. Discussion w/ other healthcare providers: Dr. Lafleur HSE SPECIALIST Prior /Outside records reviewed: I reviewed H&P from January till [address] Buck. Patient history of gestational diabetes -0-0-2 at 39 weeks and 4 days for induction. History of gestational diabetes and polyhydramnios. Differential diagnosis: Dehydration, UTI, pneumonia, metabolic derangment, electrolyte abnormalities, hypovolemia, anemia, cellulitis among others were considered. Diagnostics, as interpreted by me: ECG: None Cardiac monitoring: An order was placed for continuous cardiac monitoring. The monitor shows a rate of 105 with tachycardic and regular rhythm. Patient was placed on pulse oximetry Medical decision rules: None Imaging studies: I informally interpreted the patient's pelvic ultrasound which may show a polyp versus retained products with formal report to follow. I informally interpreted the patient's chest x-ray which does not show obvious pneumonia or pneumothorax with formal report to follow. HPI: Patient presents due to concern for fevers chills in setting of being recently . The patient is a vaginal delivery at 39 weeks scheduled induction for 6 days prior. The patient states that and Sunday she developed some fevers and chills. Tmax of 103. The patient is been alternating ibuprofen and Tylenol and that her fever will go down to 101. The patient Nu[place] any nausea vomiting no upper respiratory symptoms cough headache ear pain sore throat or congestion. Patient does complain of lower abdominal pain. The patient was still having some bleeding up until about yesterday with associated clots. Patient denies any chest pains or shortness of breath PAST MEDICAL HISTORY: See Below PAST SURGICAL HISTORY: See Below SOCIAL HISTORY: See Below HOME MEDICATIONS: See Below ALLERGIES: See Below VITALS: See Below PHYSICAL EXAMINATION: GENERAL: NAD, non-toxic. EYE EXAM: Normal conjunctiva. PERRL, no anisocoria and EOM's grossly intact w/o pain. OROPHARYNX: Moist mucus membranes, grossly normal dentition. NECK: Supple, no nuchal rigidity, no adenopathy, non-tender. No signs of meningismus. FROM of the neck with good chin to chest and neck extension. No stridor. LUNGS: Clear to auscultation. Normal chest wall mechanics. HEART: NSR, no MRG. ABDOMEN: Abdomen soft, lower abdominal discomfort, no masses, no rebound or guarding. BACK: No CVA TTP. SKIN: No rashes and no bruising. UPPER EXTREMITIES: Upper extremities are grossly normal. LOWER EXTREMITIES: Grossly normal, no edema. NEURO EXAM: A&O x3, cranial nerves II-XII grossly intact, normal speech, moves all 4 extremities. Past Med/Surg History Medical History No pertinent past medical history Surgical History History of cholecystectomy History of appendectomy Hx of cholecystectomy Social History Smoking Status: Never smoker Hx Alcohol Use: No Hx Substance Use: No Preferred Language: Slovenian Communication Ability: Effective Service Provider Required: No Beliefs That Will Affect Care: None marital status: Single Current Living Situation: Family and Significant Other Other Information That Helps Us Care for You: No Feels Safe at Home: Yes Safety Concerns: Feels Safe At This Time Assistive Devices: None Allergies Allergies Allergy/AdvReac Type Severity Reaction Status Date / Time tuberculin, purified protein Allergy Severe REDNESS & Verified 01/22/23 15:08 deriva SWELLING AT SITE Home Meds Home Medications Medication Instructions Recorded Confirmed omeprazole magnesium 20 mg 20 mg PO DAILY ##0 01/06/23 01/22/23 tablet,delayed release (Prilosec OTC) docusate sodium 100 mg capsule 100 mg PO DAILY 01/22/23 01/22/23 (Colace) Previous Rx's Medication Instructions Recorded vit no.95-ferrous 1 tab PO DAILY #90 tabs 01/07/23 fumarate 28 mg-folic acid 800 mcg tablet ibuprofen 600 mg tablet 600 mg PO Q6H PRN fever or pain 01/17/23 #30 tabs ferrous sulfate 325 mg (65 mg 325 mg PO BID #60 tabs 01/18/23 iron) tablet,delayed release Results & Data (ED) Vital Signs Vital Signs - 24 hr 01/22/23 12:45 Temperature 36.6 C Temperature Source Temporal Artery Scan Pulse Rate 117 H Respiratory Rate 20 Respiratory Effort / Characteristics Non-Labored Respiratory Depth Normal Blood Pressure 117/65 Blood Pressure Mean 82 Pulse Oximetry 97 Oxygen Delivery Method Room Air Sepsis Recent Fever Within 48 Hours No Sepsis New/Unexplained Change in Mental Status No Sepsis Action Taken by Nursing No Action Required Home Medications Current Medication List: was personally reviewed by me Laboratory Data Attestation: I reviewed the patient's lab results. 01/23/23 05:51 01/23/23 05:51 Lab Results 01/22/23 01/22/23 01/22/23 Range/Units 12:56 12:58 13:54 WBC 13.79 H (4.8-10.8) K/ul RBC 3.62 L (4.20-5.40) M/uL Hgb 10.9 L (12.0-16.0) g/dl Hct 34.2 L (37.0-47.0) % MCV 94.5 (80.0-100.0) fL MCH 30.1 (25.0-34.0) pg MCHC 31.9 L (32.0-36.0) g/dL RDW Std Deviation 45.0 (36.4-46.3) fL RDW Coeff of Sohan 13.1 (11.5-14.5) % Plt Count 359 (130-400) K/uL MPV 10.6 (9.4-12.4) fL Immature Gran % (Auto) 1.0 % Neut % (Auto) 80.5 % Lymph % (Auto) 11.2 % [place] % (Auto) 5.9 % Eos % (Auto) 0.9 % Baso % (Auto) 0.5 % Neut # (Auto) 11.09 H (1.40-6.50) K/uL Lymph # (Auto) 1.54 (1.20-3.40) K/uL [place] # (Auto) 0.82 H (0.11-0.59) K/uL Eos # (Auto) 0.13 (0.00-0.50) K/uL Baso # (Auto) 0.07 (0.00-0.20) K/uL Immature Gran # (Auto) 0.14 (0.01-0.20) K/uL Sodium 138 (136-145) mmol/L Potassium 3.7 (3.5-5.1) mmol/L Chloride 105 (98-107) mmol/L Carbon Dioxide 25 (21-32) mmol/L Anion Gap 8 (3-11) BUN 6 (6-23) mg/dl Creatinine 0.54 L (0.6-1.2) mg/dl Est Cr Clr Drug Dosing 135.3 ml/min Est GFR ( Amer) 140.7 ml/min Est GFR (Non-Af Amer) 121.4 ml/min BUN/Creatinine Ratio 11.1 (10-20) Glucose 102 H (70-99(Fasting)) mg/dl Lactate (0.4-2.0) mmol/L Calcium 8.8 (8.6-10.3) mg/dl Total Bilirubin 0.5 (0.2-1.0) mg/dl AST 18 (13-39) U/L ALT 24 (7-52) U/L Alkaline Phosphatase 125 H (34-104) U/L Total Protein 7.0 (6.0-8.3) gm/dl Albumin 3.7 (3.4-5.0) gm/dl Globulin 3.3 (2.5-4.0) gm/dl Albumin/Globulin Ratio 1.1 (0.9-2) Procalcitonin < 0.05 (0-0.5) ng/ml Adenovirus (PCR) Not Detected (NotDetected) B. pertussis DNA (PCR) Not Detected (NotDetected) B.parapertussis DNA PCR Not Detected (NotDetected) C. pneumoniae DNA (PCR) Not Detected (NotDetected) Coronavirus OC43 (PCR) Not Detected (NotDetected) Coronavirus HKU1 (PCR) Not Detected (NotDetected) Coronavirus 229E (PCR) Not Detected (NotDetected) SARS-CoV-2 (PCR) Not Detected (NotDetected) Coronavirus NL63 (PCR) Not Detected (NotDetected) Human Metapneumovir PCR Not Detected (NotDetected) Influenza Type A (PCR) Not Detected (NotDetected) Influenza Type B (PCR) Not Detected (NotDetected) M. pneumoniae (PCR) Not Detected (NotDetected) Parainfluenza 1 (PCR) Not Detected (NotDetected) Parainfluenza 2 (PCR) Not Detected (NotDetected) Parainfluenza 3 (PCR) Not Detected (NotDetected) Parainfluenza 4 (PCR) Not Detected (NotDetected) RSV (PCR) Not Detected (NotDetected) Entero/Rhino (PCR) Not Detected (NotDetected) 01/22/23 Range/Units 14:33 WBC (4.8-10.8) K/ul RBC (4.20-5.40) M/uL Hgb (12.0-16.0) g/dl Hct (37.0-47.0) % MCV (80.0-100.0) fL MCH (25.0-34.0) pg MCHC (32.0-36.0) g/dL RDW Std Deviation (36.4-46.3) fL RDW Coeff of Sohan (11.5-14.5) % Plt Count (130-400) K/uL MPV (9.4-12.4) fL Immature Gran % (Auto) % Neut % (Auto) % Lymph % (Auto) % [place] % (Auto) % Eos % (Auto) % Baso % (Auto) % Neut # (Auto) (1.40-6.50) K/uL Lymph # (Auto) (1.20-3.40) K/uL [place] # (Auto) (0.11-0.59) K/uL Eos # (Auto) (0.00-0.50) K/uL Baso # (Auto) (0.00-0.20) K/uL Immature Gran # (Auto) (0.01-0.20) K/uL Sodium (136-145) mmol/L Potassium (3.5-5.1) mmol/L Chloride (98-107) mmol/L Carbon Dioxide (21-32) mmol/L Anion Gap (3-11) BUN (6-23) mg/dl Creatinine (0.6-1.2) mg/dl Est Cr Clr Drug Dosing ml/min Est GFR ( Amer) ml/min Est GFR (Non-Af Amer) ml/min BUN/Creatinine Ratio (10-20) Glucose (70-99(Fasting)) mg/dl Lactate 1.2 (0.4-2.0) mmol/L Calcium (8.6-10.3) mg/dl Total Bilirubin (0.2-1.0) mg/dl AST (13-39) U/L ALT (7-52) U/L Alkaline Phosphatase (34-104) U/L Total Protein (6.0-8.3) gm/dl Albumin (3.4-5.0) gm/dl Globulin (2.5-4.0) gm/dl Albumin/Globulin Ratio (0.9-2) Procalcitonin (0-0.5) ng/ml Adenovirus (PCR) (NotDetected) B. pertussis DNA (PCR) (NotDetected) B.parapertussis DNA PCR (NotDetected) C. pneumoniae DNA (PCR) (NotDetected) Coronavirus OC43 (PCR) (NotDetected) Coronavirus HKU1 (PCR) (NotDetected) Coronavirus 229E (PCR) (NotDetected) SARS-CoV-2 (PCR) (NotDetected) Coronavirus NL63 (PCR) (NotDetected) Human Metapneumovir PCR (NotDetected) Influenza Type A (PCR) (NotDetected) Influenza Type B (PCR) (NotDetected) M. pneumoniae (PCR) (NotDetected) Parainfluenza 1 (PCR) (NotDetected) Parainfluenza 2 (PCR) (NotDetected) Parainfluenza 3 (PCR) (NotDetected) Parainfluenza 4 (PCR) (NotDetected) RSV (PCR) (NotDetected) Entero/Rhino (PCR) (NotDetected) Administered Medications Discontinued Medications Acetaminophen (Acetaminophen 500 Mg Tab) 1,000 mg PO NOW STA Stop: 01/22/23 13:53 Last Admin: 01/22/23 14:18 Dose: 1,000 mg Documented By: SURESH Acetaminophen (Acetaminophen 325 Mg Tab) 650 mg PO Q4H PRN PRN Reason: Pain or Fever Stop: 02/21/23 16:09 Last Admin: 01/23/23 08:07 Dose: 650 mg Documented By: AMI Docusate Sodium (Docusate Sodium 100 Mg Cap) 100 mg PO DAILY LO Stop: 02/22/23 08:59 Last Admin: 01/23/23 08:07 Dose: 100 mg Documented By: AMI Ferrous Sulfate (Ferrous Sulfate 325 Mg Tab) 325 mg PO BIDM LO Stop: 02/21/23 20:59 Last Admin: 01/23/23 08:07 Dose: 325 mg Documented By: Admin: 01/22/23 20:30 Dose: Not Given Documented By: ERIKA Ceftriaxone Sodium (Rocephin) 2,000 mg in 50 mls @ 100 mls/hr IV NOW STA Stop: 01/22/23 13:58 Last Infusion: 01/22/23 14:19 Dose: Infused Documented By: Admin: 01/22/23 13:44 Dose: 100 mls/hr Documented By: CHRISTIANO Clindamycin Phosphate (Cleocin/D5w) 900 mg in 50 mls @ 100 mls/hr IV NOW ONE Stop: 01/22/23 13:58 Last Infusion: 01/22/23 14:59 Dose: Infused Documented By: Admin: 01/22/23 14:18 Dose: 100 mls/hr Documented By: SURESH Sodium Chloride (Nss) 1,000 mls @ 999 mls/hr IV .Q1H1M LO Stop: 01/22/23 15:45 Last Infusion: 01/22/23 18:16 Dose: Infused Documented By: Admin: 01/22/23 17:23 Dose: 999 mls/hr Documented By: Infusion: 01/22/23 16:22 Dose: Infused Documented By: Admin: 01/22/23 13:44 Dose: 999 mls/hr Documented By: CHRISTIANO Lactated Ringer's (Lr) 1,000 mls @ 125 mls/hr IV .Q8H LO Stop: 02/21/23 16:14 Last Infusion: 01/23/23 11:06 Dose: Infused Documented By: Admin: 01/23/23 08:09 Dose: 125 mls/hr Documented By: Infusion: 01/23/23 08:09 Dose: Infused Documented By: Admin: 01/23/23 01:09 Dose: 125 mls/hr Documented By: Infusion: 01/23/23 01:09 Dose: Infused Documented By: Admin: 01/22/23 17:57 Dose: 125 mls/hr Documented By: SURESH Gentamicin Sulfate 300 mg/ (Dextrose) 107.5 mls @ 100 mls/hr IV ONCE STA Stop: 01/22/23 17:32 Last Infusion: 01/22/23 19:10 Dose: Infused Documented By: Admin: 01/22/23 17:57 Dose: 100 mls/hr Documented By: SURESH Clindamycin Phosphate (Cleocin/D5w) 900 mg in 50 mls @ 100 mls/hr IV Q8H [facility] Stop: 02/01/23 16:29 Last Infusion: 01/23/23 08:38 Dose: Infused Documented By: Admin: 01/23/23 08:08 Dose: 100 mls/hr Documented By: Infusion: 01/23/23 00:27 Dose: Infused Documented By: Admin: 01/22/23 23:30 Dose: 100 mls/hr Documented By: Infusion: 01/22/23 18:13 Dose: Infused Documented By: Admin: 01/22/23 17:28 Dose: 100 mls/hr Documented By: SURESH Ibuprofen (Ibuprofen 600 Mg Tab) 600 mg PO Q6H PRN PRN Reason: fever or pain Stop: 02/21/23 20:08 Last Admin: 01/23/23 03:51 Dose: 600 mg Documented By: Admin: 01/22/23 23:29 Dose: 600 mg Documented By: ERIKA Ketorolac Tromethamine (Ketorolac Tromethamine 15 Mg/Ml Vial) 10 mg IV NOW ONE Stop: 01/22/23 13:53 Last Admin: 01/22/23 14:18 Dose: 10 mg Documented By: SURESH Misoprostol (Misoprostol 200 Mcg Tab) 600 mcg PO Q6 LO Stop: 01/22/23 12:01 Last Admin: 01/22/23 21:25 Dose: Not Given Documented By: Admin: 01/22/23 21:25 Dose: Not Given Documented By: Admin: 01/22/23 21:25 Dose: Not Given Documented By: ERIKA Misoprostol (Misoprostol 200 Mcg Tab) 600 mcg PO ONE ONE Stop: 01/22/23 17:16 Last Admin: 01/22/23 17:57 Dose: 600 mcg Documented By: SURESH Misoprostol (Misoprostol 200 Mcg Tab) 600 mcg PO Q6 LO Stop: 01/23/23 12:01 Last Admin: 01/23/23 11:35 Dose: 600 mcg Documented By: Admin: 01/23/23 06:27 Dose: 600 mcg Documented By: Admin: 01/22/23 23:30 Dose: 600 mcg Documented By: ERIKA Pantoprazole Sodium (Pantoprazole 40 Mg Tab) 40 mg PO DAILY LO Stop: 02/22/23 08:59 Last Admin: 01/23/23 08:07 Dose: 40 mg Documented By: AMI Prenat Multivit/[place]/Iron/Folic Ac ( Vitamin 1 Tab) 1 tab PO DAILY LO Stop: 02/22/23 08:59 Last Admin: 01/23/23 08:07 Dose: 1 tab Documented By: AMI Imaging Data Radiologist's Impression: Chest X-Ray 01/22/23 13:31 XR chest 1V portable HISTORY: fever COMPARISON: Chest 04/01/2021. FINDINGS: The lungs are clear. Cardiac silhouette is normal in size. No pleural effusions. No pneumothorax. IMPRESSION: No acute process. ACT 112: Negative or not required by law. Electronically signed by: Tylor Welsh M.D. 01/22/2023 2:02 PM Pelvis Ultrasound 01/22/23 13:31 PELVIC ULTRASOUND, TRANSABDOMINAL AND TRANSVAGINAL HISTORY: post , fevers, chills pelvic pain; r/o retained product of conception COMPARISON: Pelvic ultrasound 12/30/2013. FINDINGS: Uterus: 16.5 x 10.7 x 7.5 cm. No uterine masses. Endometrial stripe: Heterogeneous. There is a round hyperechoic focus within the mid endometrium measuring 13 x 12 x 12 mm. This demonstrates associated color flow. Therefore, this is suspicious for retained products of conception. An endometrial polyp could also have a similar appearance. Right ovary: Not visualized. Left ovary: Not visualized. Miscellaneous:No pelvic free fluid. IMPRESSION: There is a round hyperechoic focus within the mid endometrium measuring 13 x 12 x 12 mm. This demonstrates color flow. Therefore, this is suspicious for retained products of conception. An endometrial polyp could also have a similar appearance. ACT 112: Negative or not required by law. Electronically signed by: Tylor Welsh M.D. 01/22/2023 3:19 PM Discharge Plan Visit Data Chief Complaint: Infection Stated Complaint: UTERINE INFECION? ED Provider: Serge Holland Discharge Problem: Endomyometritis, Retained prod concept-unsp Patient Disposition: Admitted As Inpatient Condition: Good Discharge Instructions Interventions: ED Discharge Assessment Last Done: 01/22/23 19:45
[2023-01-22 13:27] LABS: Basophils # (auto) 0.07 K/uL (0.00-0.20); Basophils % (auto) 0.5 %; Eosinophils # (auto) 0.13 K/uL (0.00-0.50); Eosinophils % (auto) 0.9 %; Hematocrit (blood only) 34.2 % (37.0-47.0); Hemoglobin 10.9 g/dl (12.0-16.0); Immature Granulocytes # (auto) 0.14 K/uL (0.01-0.20); Lymphocytes # (auto) 1.54 K/uL (1.20-3.40); Lymphocytes % (auto) 11.2 %; Mean Corpuscular Hemoglobin 30.1 pg (25.0-34.0); Mean Corpuscular Hgb Conc 31.9 g/dL (32.0-36.0); Mean Corpuscular Volume 94.5 fL (80.0-100.0); Mean Platelet Volume 10.6 fL (9.4-12.4); Monocytes # (auto) 0.82 K/uL (0.11-0.59); Monocytes % (auto) 5.9 %; Neutrophils # (auto) 11.09 K/uL (1.40-6.50); Neutrophils % (auto) 80.5 %; Platelet Count 359 K/uL (130-400); RDW Coefficient of Variation 13.1 % (11.5-14.5); Red Blood Count 3.62 M/uL (4.20-5.40); White Blood Count 13.79 K/ul (4.8-10.8)
[2023-01-22] MEDS ORDERED: cefTRIAXone SODIUM 2,000 MG/50 ML BAG IV STA (13:29)
[2023-01-22] MEDS ORDERED: CLINDAMYCIN/D5W 900 MG/50 ML BAG IV ONE (13:29)
[2023-01-22 13:31] LABS: Albumin Globulin Ratio 1.1 (0.9-2); Albumin Level 3.7 gm/dl (3.4-5.0); BUN Creatinine Ratio 11.1 (10-20); Bilirubin,Total 0.5 mg/dl (0.2-1.0); Calcium 8.8 mg/dl (8.6-10.3); Creatinine Clr Calc Pharmacy 135.3 ml/min; Est GFR (African American) 140.7 ml/min; Est GFR (Non-African American) 121.4 ml/min; Globulin 3.3 gm/dl (2.5-4.0); Potassium 3.7 mmol/L (3.5-5.1)
[2023-01-22] MEDS: SODIUM CHLORIDE 0.9% 1,000 ML IV SCH ×2 (13:44→17:23)
[2023-01-22] MEDS ORDERED: ACETAMINOPHEN 500 MG TAB PO STA (13:52)
[2023-01-22] MEDS ORDERED: KETOROLAC TROMETHAMINE 15 MG/ML VIAL IV ONE (13:52)
--- NOTE | 2023-01-22 14:04 | XRay Report ---
XR chest 1V portable HISTORY: fever COMPARISON: Chest 04/01/2021. FINDINGS: The lungs are clear. Cardiac silhouette is normal in size. No pleural effusions. No pneumot horax. IMPRESSION: No acute process. ACT 112: Negative or not required by law. Electronically signed by: Tylor Welsh M.D. 01/22/2023 2:02 PM
[2023-01-22 14:54] LABS: Adenovirus PCR Not Detected (NotDetected); Bordetella parapertussis PCR Not Detected (NotDetected); Bordetella pertussis PCR Not Detected (NotDetected); Chlamydia pneumoniae PCR Not Detected (NotDetected); Coronavirus 229E PCR Not Detected (NotDetected); Coronavirus CoV-2 (COVID19)PCR Not Detected (NotDetected); Coronavirus HKU1 PCR Not Detected (NotDetected); Coronavirus NL63 PCR Not Detected (NotDetected); Coronavirus OC43PCR Not Detected (NotDetected); Human Metapneumovirus PCR Not Detected (NotDetected); Influenza A PCR Not Detected (NotDetected); Influenza B PCR Not Detected (NotDetected); Mycoplasma pneumoniae PCR Not Detected (NotDetected); Parainfluenza Virus 1 PCR Not Detected (NotDetected); Parainfluenza Virus 2 PCR Not Detected (NotDetected); Parainfluenza Virus 3 PCR Not Detected (NotDetected); Parainfluenza Virus 4 PCR Not Detected (NotDetected); Respiratory Syncytial VirusPCR Not Detected (NotDetected); Rhinovirus/Enterovirus PCR Not Detected (NotDetected)
--- NOTE | 2023-01-22 15:21 | Ultrasound Report ---
PELVIC ULTRASOUND, TRANSABDOMINAL AND TRANSVAGINAL HISTORY: post , fevers, chills pelvic pain; r/o retained product of conception COMPARISON: Pelvic ultrasound 12/30/2013. FINDINGS: Uterus: 16.5 x 10.7 x 7.5 cm. No uterine masses. Endometrial stripe: Heterogeneous. There is a round hyperechoic focus within the mid endometrium hermila uring 13 x 12 x 12 mm. This demonstrates associated color flow. Therefore, this is suspicious for ret ained products of conception. An endometrial polyp could also have a similar appearance. Right ovary: Not visualized. Left ovary: Not visualized. Miscellaneous:No pelvic free fluid. IMPRESSION: There is a round hyperechoic focus within the mid endometrium measuring 13 x 12 x 12 mm. This demonst rates color flow. Therefore, this is suspicious for retained products of conception. An endometrial p olyp could also have a similar appearance. ACT 112: Negative or not required by law. Electronically signed by: Tylor Welsh M.D. 01/22/2023 3:19 PM
[2023-01-22] MEDS ORDERED: IBUPROFEN 600 MG TAB PO PRN (16:10)
[2023-01-22] MEDS ORDERED: ACETAMINOPHEN 325 MG TAB PO PRN (16:10)
--- NOTE | 2023-01-22 16:10 | History & Physical Report ---
Date of Service January 22, 2023 Assessment & Plan (1) Endomyometritis: Plan: Will start patient on antibiotics. Blood cultures have already been ordered through ER and pending (2) Retained prod concept-unsp: Plan: Ultrasound showed a 1 cm possible retained products versus polyp. In view of this size I decided to give her Cytotec x 24 hours and repeat ultrasound. History of Present Illness Chief Complaint: Abdominal pain and fever. Primary Care Provider: NO PCP This is a 37-year-old status post vaginal delivery on 01/16/2023. Delivery was unremarkable. Patient was discharged home on day 2 . She reports passing clots and having some fevers and chills. Today patient presents to the emergency room. In the emergency room there is no documented fever. Patient reports she has been taking Tylenol. Vitals in the emergency room are unremarkable. White count is 13,000. She report home temperature of103. Ultrasound showed 1 cm possible retained products versus endometrial polyp. Very scant bleeding today. Allergies Allergy/AdvReac Type Severity Reaction Status Date / Time tuberculin, purified protein Allergy Severe REDNESS & Verified 01/22/23 15:08 deriva SWELLING AT SITE Home Medications Medication Instructions Recorded Confirmed Type omeprazole magnesium 20 mg 20 mg PO DAILY ##0 01/06/23 01/22/23 History tablet,delayed release (Prilosec OTC) vit no.95-ferrous 1 tab PO DAILY #90 tabs 01/07/23 01/22/23 Rx fumarate 28 mg-folic acid 800 mcg tablet ibuprofen 600 mg tablet 600 mg PO Q6H PRN fever or pain 01/17/23 01/22/23 Rx #30 tabs ferrous sulfate 325 mg (65 mg 325 mg PO BID #60 tabs 01/18/23 01/22/23 Rx iron) tablet,delayed release docusate sodium 100 mg capsule 100 mg PO DAILY 01/22/23 01/22/23 History (Colace) Past Med/Surg History Surgical History History of appendectomy Hx of cholecystectomy Social History Smoking Status: Never smoker Hx Alcohol Use: No Hx Substance Use: No Beliefs That Will Affect Care: None marital status: Single Current Living Situation: Significant Other Feels Safe at Home: Yes Assistive Devices: None Results & Data Results & Data Vital Signs (Past 12 Hours) Vital Signs Temp Pulse Resp BP Pulse Ox O2 Del Method 01/22/23 12:45 36.6 C 117 H 20 117/65 97 Room Air
[2023-01-22] MEDS ORDERED: GENTAMICIN CONSULT ACTIVE PRN (16:20)
[2023-01-22] MEDS ORDERED: GENTAMICIN SULFATE 300 MG in DEXTROSE 5% 100 ML IV STA (16:28)
[2023-01-22] MEDS ORDERED: miSOPROStoL 200 MCG TAB PO ONE (17:15)
[2023-01-22] MEDS: CLINDAMYCIN/D5W 900 MG/50 ML BAG IV SCH ×2 (17:28→23:30)
[2023-01-22] MEDS: LACTATED RINGER'S 1,000 ML IV SCH (17:57)
--- OUTSIDE RECORDS SUMMARY | 2023-01-22 18:19 | External Medical Summary | Summary of Care ---
Author Name Unknown Organization [facility] Address [address] [place] [place] [address] Phone [phone] Care Team Providers Care Cutter Helper Name Role Phone Yadi Olguin MD Primary Care Provider [phone] Reason for Visit * Reason Comments Perinatal Director Return Encounter Details Date Type Department Care Team (Late st Contact Info) Description 01/19/2023 3:00 PM EST Office Visit Gynecology/Obstetics [facility] [address] [place] [address] Coleman Matos MD [address] [place] [address] Multigravida of advanced maternal age in third trimester*; Supervision of high-risk , third trimester; Family history of von Willebrand disease Allergies Active Allergy Reactions Criticality Noted Date Comments Tuberculin Ppd 03/07/2010 Should get preservative free in future documented as of this encounter (statuses as of 01/19/2023) Medications Medication Sig Dispensed Refills Start Date End Date Status Gummies 0.18-25 MG Oral Tablet Chewable Take by mouth. 0 Activ e B Complex Oral Capsule Take 1 Capsule by mouth in the morning. 0 Active Ferrous Sulfate 325 (65 Fe) MG [...] the morning. 30 Capsule 1 10/12/2022 Active Good Men MediaTouch Ultra 2 w/Device KitIndications:G estational diabetes mellitus (GDM) in third trimester, gestational diabetes method of control unspecified Test blood sugars 4 times a day (fasting and one hour after 3 meals). 1 Kit 0 11/03/2022 Active Additional Information Patient not taking.Reported on 01/19/2023 Satarii Ultra In Vitro Strip (Glucose Blood)Indication s:Gestational diabetes mellitus (GDM) in third trimester, gestational diabetes method of control unspecified Test blood sugars 4 times a day (fasting and one hour after 3 meals). 120 Strip 3 11/03/2022 Active Additional Information Patient not taking.Reported on 01/19/2023 LancetsIndicatio ns:Gestational diabetes mellitus (GDM) in third trimester, gestational diabetes method of control unspecified Test blood sugars 4 times a day (fasting and one hour after 3 meals). 120 Each 3 11/03/2022 Active Additional Information Patient not taking.Reported on 01/19/2023 Ventolin HFA 108 (90 Base) MCG/ACT Inhalation Aerosol SolutionIndicati ons:Acute bronchitis, antibiotics not indicated Inhale 2 Puffs by mouth every 4 hours as needed for Wheezing or Dyspnea. 1 g 0 07/26/2022 3 Discontinued documented as of this encounter (statuses as of 01/19/2023) Active Problems Problem Noted Date Diagnosed Date [...] Gestational diabetes mellitus (GDM) in third tri [facility] 11/08/2022 Overview: Diagnosed at 29 weeks Nutrition referral ordered Has Seeruch Ultra2 meter Lab Results Component Value Date/Time [...] 12/19/22- stable 12/26/22- stable 01/02/23-stable 01/09/23- stable 01/16/23- stable Last Assessment & Plan: Hortensia states sugars have been under excellent control on diet. Encouraged her to continue to submit to [facility]. Multigravida of advanced maternal age in third t rimester 06/14/2022 Overview: Age 37 at ADELSO Qnatal low risk. Declines MSAFP testing. Declines MATERNAL MEDICINE referral. Supervision of high-risk , [facility] 06/14/2022 Overview: Estimated Date of Delivery: 01/19/23 Continue vitamin A positive. Rubella and varicella immune. Qnatal testing low risk. Declines MSAFP testing. Declines MATERNAL MEDICINE referral. S/p anatomy ultrasound. Has GDM. Hemoglobin is stable. Tdap vaccine completed. GBS culture at 36 weeks. contraception: tubal ligation. Desires to breastfeed. Getting breast pump through insurance. Note: Desires [facility] delivery. Advised patient to transfer care at 36 weeks. 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 Degeneration of lumbar intervertebral disc 02/15 Nolan's esophagus without dysplasia 08/07/2017 S/P laparoscopic fundoplication 08/07/2017 Gastroesophageal reflux disease without esophagi tis 07/19/2017 Estimated Date of Delivery Comme nts Yes 01/19/2023 Based on Ultraso und documented as of this encounter (statuses as of 01/19/2023) Resolved Problems Problem Noted Date Diagnosed Date Resolved Date Low-lying placenta 08/29/2022 Malaise and fatigue 10/11/2018 10/05/19 23 Low [...] as of this encounter (statuses as of 01/19/2023) Immunizations Name Administration Dates Next Due Seasonal Influenza, PF, 6 M & above, IM , (FluLaval or Fluzone) 12/04/2018,01/06/2017 Seasonal Influenza, Split, I IV3, With [...] money to get more. Never true 09/05/2022 [place] Depression Scale Answer Date Recorded [place] Depression Scale Total 0 12/08/2022 The thought [...] Sign Reading Time Taken Comments Blood Pressure 98/62 01/19/2023 3:17 PM EST Pulse - - Temperature 37.1 C (98.8 F) 01/19/2023 3:17 PM ES T Respiratory Rate - - Oxygen Saturation - - Inhaled Oxygen Concentration - - Weight 73.1 kg (161 lb 3.2 oz) 01/19/2023 3:17 P M EST Height - - Body Mass Index 28.56 01/12/2023 11:09 AM EST documented in this [...] as of this encounter Progress Notes * Coleman Matos MD - 01/19/2023 3:43 PM EST Hortensia Cox 01/19/2023 CC: Here for 3 days post c/o passing clots and tmax 101.5 at home HPI: The pt is a 37 year old female presents 3 days post from a C/o passing clots and fever tmax 101.5 temp today wnl Has been on ibuprofen rount the clock Admits to mild soreness and some suture discomfort States felt like delivering provider took almost 30 min to deliver placenta HGB trended from 11-8 pp Pain somewhat controlled . Reviewed records no complications noted ebl 200ml PE: Pleasant Female NAD BP 98/62 | Temp 37.1 C (98.8 F) (Tympanic) | Wt 73.1 kg (161 lb 3.2 oz) | LMP (LMP Unknown) | Yes | BMI 28.56 kg/m | BSA 1.8 m Abdominal exam: soft non distended mildly tender Pelvic exam - vaginal laceration intact with some healing burn yadi noted Small clots in vaginal vault but no active bleeding Grade 2-3 cystocele and rectocele Cervix 1 cm dilated Gear Grinder Documentation Provider requested insole beveler. Name of insole beveler: Shagufta WINSTON Bedside sono showed thin stripe with some 1cm blood clots in MEAGAN same clots noted on pelvic exam A/P: 37 year old yo female 3 days from with fever and pain Advised if she has another temp notify us to get treatment for possible endometritis Advised miso to help with bleeding patient declined at this time Advised ibuprofen 800 mg q 8 hrs x 3 doses and the prn after Advised pelvic rest and cold compress to perineum as needed Advised return in 1 wk to reassess pain and bleeding Advised call with temp 100.4 or higher or worsening pain or bleeding Pelvic rest x 6 wks Coleman Matos MD documented in this encounter Nursing Notes * Shagufta Coffey RN - 01/19/2023 3:16 PM EST Pt presents with concerns following vaginal delivery on 01/25/23. Pt reports that she is passing large clots - half dollar sized - and feels like there is a lot of swelling - "feels like there is another head coming out". documented in this encounter Plan of Treatment Upcoming Encounters Date Type Department Care Team (Late st Contact Info) Description 01/26/2023 12:30 PM EST Office Visit Gynecology/Obstetics [facility] [address] [place] [address] Coleman Matos MD [address] [place] [address] 02/09/2023 9:00 AM EST Telemedicine Gynecology/Obstetrics [facility] [address] [place] [address] Teri [address] [place] [address] 03/01/2023 10:30 AM EST Office Visit Gynecology/Obstetrics [facility] [place] [id number] Sue George CRNP [address] [facility] [place] [address] Health Maintenance Due Date Last Done Comments [...] Not on filedocumented as of this encounter Visit Diagnoses Diagnosis Multigravida of advanced maternal age in third trimester- Primary Supervision of high-risk , third trimester Family history of von Willebrand disease Family history of other blood disorders documented in this encounter Advance Directives Latest [...] and were consensually agreed upon. Care Teams Cutter Helper Relationship Specialty Start Date End Date Yadi Olguin MD [address] [place] [address] PCP - General Family Medicine 12/16/12 documented as of this encounter
--- OUTSIDE RECORDS SUMMARY | 2023-01-22 18:19 | External Medical Summary | Summary of Care ---
Author Name Unknown Organization [facility] Address [address] [place] [address] Phone [phone] Care Team Providers Care Can Marker Name Role Phone Jourdan Olguin MD Primary Care Provider [phone] Reason for Visit * Reason Onset Date Comments Hospital Follow-Up 01/19/2023 No NAUN needed Encounter Details Date Type Department Care Team (Late st Contact Info) Description 01/19/2023 Telephone Ancillary Department, [address] [address] Gladys Aguilera, RN Hospital Follow-Up (No NAUN needed) Allergies Active Allergy Reactions Criticality Noted Date [...] Additional Information Patient not taking.Reported on 12/08/2022 Ayalogicuch Ultra 2 w/Device KitIndications:Gest ational diabetes mellitus (GDM) in third trimester, gestational diabetes method of control unspecified Test blood sugars 4 times a day (fasting and one hour after 3 meals). 1 Kit 0 11/03/2022 Active Ayalogicuch Ultra In Vitro Strip (Glucose Blood)Indications:G estational [...] Multigravida of advanced maternal age in third [facility] 06/14/2022 Overview: Age 37 at ADELSO Qnatal low risk. Declines MSAFP testing. Declines MATERNAL MEDICINE referral. Supervision of high-risk , [facility] 06/14/2022 Overview: Estimated Date of Delivery: 01/19/23 Continue vitamin A positive. Rubella and varicella immune. Qnatal testing low risk. Declines MSAFP testing. Declines MATERNAL MEDICINE referral. S/p anatomy ultrasound. Has GDM. Hemoglobin is stable. Tdap vaccine completed. GBS culture at 36 weeks. contraception: tubal ligation. Desires to breastfeed. Getting breast pump through insurance. Note: Desires [facility] delivery. Advised patient to transfer care at [...] money to get more. Never true 09/05/2022 [place] Depression Scale Answer Date Recorded [place] Depression Scale Total 0 12/08/2022 The thought [...] encounter Miscellaneous Notes * Telephone Encounter - Gladys Aguilera RN - 01/19/2023 8:02 AM EST Transitions of Care Note Reason for Referral:Recent Admission Phone visit for follow up: Inpatient Hospitalization Admitted to: [facility], Date: 01/16 Discharged to: home, Date: 01/18 NAUN call not indicated due to vaginal delivery. Gladys Aguilera, RN documented in this encounter Plan of Treatment Upcoming Encounters Date Type Department Care Team (Late st Contact Info) Description 02/09/2023 9:00 AM EST Telemedicine Gynecology/Obstetrics [facility] [address] [place] [address] Teri Taylor CN [address] [facility] [place] [address] 03/01/2023 10:30 AM EST Office Visit Gynecology/Obstetrics [facility] [address] [place] [address] Sue George CRNP [address] [place] [address] Health Maintenance Due Date Last Done Comments [...] and were consensually agreed upon. Care Teams Can Marker Relationship Specialty Start Date End Date Jourdan Olguin MD [address] [place] [address] PCP - General Family Medicine 12/16/12 documented as of this encounter
--- OUTSIDE RECORDS SUMMARY | 2023-01-22 18:19 | External Medical Summary | Summary of Care ---
Author Name Unknown Organization [facility] Address [address] [facility] [place] [address] Phone [phone] Care Team Providers Care Staff Weapons Officer Name Role Phone Jourdan Olguin MD Primary Care Provider [phone] Reason for Visit * Reason Onset Date Comments Home Monitoring Orders Only 01/18/2023 Encounter Details Date Type Department Care Team (Late st Contact Info) Description 01/18/2023 Home Monitoring Package [facility] [address] [place] [address] Vandana Reyes CRNP [address] [place] [address] Diet controlled gestational diabetes mellitus (GDM) in third trimester* Allergies Active Allergy Reactions Criticality Noted Date Comments Tuberculin Ppd 03/07/2010 Should get preservative free in future documented as of this encounter (statuses as of 01/18/2023) Medications Medication Sig Dispensed Refills Start Date [...] Additional Information Patient not taking.Reported on 12/08/2022 ATOMOO Ultra 2 w/Device KitIndications:Gest ational diabetes mellitus (GDM) in third trimester, gestational diabetes method of control unspecified Test blood sugars 4 times a day (fasting and one hour after 3 meals). 1 Kit 0 11/03/2022 Active Mediusuch Ultra In Vitro Strip (Glucose Blood)Indications:G estational [...] as of this encounter (statuses as of 01/18/2023) Active Problems Problem Noted Date Diagnosed Date [...] at 29 weeks Nutrition referral ordered Has ATOMOO Ultra2 meter Lab Results Component Value Date/Time [...] Multigravida of advanced maternal age in third [facility] 06/14/2022 Overview: Age 37 at ADELSO Qnatal low risk. Declines MSAFP testing. Declines MATERNAL MEDICINE referral. Supervision of high-risk , [facility] 06/14/2022 Overview: Estimated Date of Delivery: 01/19/23 Continue vitamin A positive. Rubella and varicella immune. Qnatal testing low risk. Declines MSAFP testing. Declines MATERNAL MEDICINE referral. S/p anatomy ultrasound. Has GDM. Hemoglobin is stable. Tdap vaccine completed. GBS culture at 36 weeks. contraception: tubal ligation. Desires to breastfeed. Getting breast pump through insurance. Note: Desires [facility] delivery. Advised patient to transfer care at 36 weeks. 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 Never true 09/05/2022 [place] Depression Scale Answer Date Recorded [place] Depression Scale Total 0 12/08/2022 The thought [...] as of this encounter Progress Notes * Ketty Gimenez, RN - 01/18/2023 10:19 AM EST Patient has been discharged from [facility] Diabetes in Home Monitoring Program - Delivery Date 01/16/23 documented in this encounter Plan of Treatment [...] as of this encounter Visit Diagnoses Diagnosis Diet controlled gestational diabetes mellitus (GDM) in third trimester- Primary documented in this encounter Advance Directives Latest [...] and were consensually agreed upon. Care Teams Staff Weapons Officer Relationship Specialty Start Date End Date Jourdan Olguin MD [address] [place] [facility] [place] [address] PCP - General Family Medicine 12/16/12 documented as of this encounter
[2023-01-22] MEDS: FERROUS SULFATE 325 MG TAB PO SCH (20:30)
[2023-01-22] MEDS: miSOPROStoL 200 MCG TAB PO SCH ×2 (21:25→23:30)
[2023-01-22] MEDS: IBUPROFEN 600 MG TAB PO PRN (23:29)
[2023-01-23] MEDS: LACTATED RINGER'S 1,000 ML IV SCH ×2 (01:09→08:09)
[2023-01-23] MEDS: IBUPROFEN 600 MG TAB PO PRN (03:51)
--- OUTSIDE RECORDS SUMMARY | 2023-01-23 04:46 | External Medical Summary | Summary of Care ---
Author Name Unknown Organization [facility] Address [address] [place] [place] [address] Phone [phone] Care Team Providers Care Instrument Designer Name Role Phone Jourdan Olguin MD Primary Care Provider Reason for Visit * Reason Onset Date Comments Advice 01/22/2023 Encounter Details Date Type Department Care Team (Late st Contact Info) Description 01/22/2023 Telephone Gynecology/Obstetics [place] [address] [place] [address] Coleman Matos MD [address] [place], [place] [phone] Advice Allergies Active Allergy Reactions Criticality Noted Date Comments Tuberculin Ppd 03/07/2010 Should get preservative free in future documented as of this encounter (statuses as of 01/22/2023) Medications Medication Sig Dispensed Refills Start Date [...] the morning. 30 Capsule 1 10/12/2022 Active AkeneoTouch Ultra 2 w/Device KitIndications:Gest ational diabetes mellitus (GDM) in third trimester, gestational diabetes method of control unspecified Test blood sugars 4 times a day (fasting and one hour after 3 meals). 1 Kit 0 11/03/2022 Active Additional Information Patient not taking.Reported on 01/19/2023 OneFAMOCOuch Ultra In Vitro Strip (Glucose Blood)Indications:G estational diabetes mellitus (GDM) in third trimester, gestational diabetes method of control unspecified Test blood sugars 4 times a day (fasting and one hour after 3 meals). 120 Strip 3 11/03/2022 Active Additional Information Patient not taking.Reported on 01/19/2023 LancetsIndications: Gestational diabetes mellitus (GDM) in third trimester, gestational diabetes method of control unspecified Test blood sugars 4 times a day (fasting and one hour after 3 meals). 120 Each 3 11/03/2022 Active Additional Information Patient not taking.Reported on 01/19/2023 documented as of this encounter (statuses as of 01/22/2023) Active Problems Problem Noted Date Diagnosed Date [...] Gestational diabetes mellitus (GDM) in third tri [facility] 11/08/2022 Overview: Diagnosed at 29 weeks Nutrition referral ordered Has AkeneoTouch Ultra2 meter Lab Results Component Value Date/Time [...] Multigravida of advanced maternal age in third [facility] 06/14/2022 Overview: Age 37 at ADELSO Qnatal low risk. Declines MSAFP testing. Declines MATERNAL MEDICINE referral. Supervision of high-risk , [facility] 06/14/2022 Overview: Estimated Date of Delivery: 01/19/23 Continue vitamin A positive. Rubella and varicella immune. Qnatal testing low risk. Declines MSAFP testing. Declines MATERNAL MEDICINE referral. S/p anatomy ultrasound. Has GDM. Hemoglobin is stable. Tdap vaccine completed. GBS culture at 36 weeks. contraception: tubal ligation. Desires to breastfeed. Getting breast pump through insurance. Note: Desires [facility] delivery. Advised patient to transfer care at 36 weeks. 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 Never true 09/05/2022 [place] Depression Scale Answer Date Recorded [place] Depression Scale Total 0 12/08/2022 The thought [...] encounter Miscellaneous Notes * Telephone Encounter - Shagufta Coffey RN - 01/22/2023 11:02 AM EST Pt replied in a different encounter - en route to ED. * Telephone Encounter - Coleman Matos MD - 01/22/2023 10:55 AM EST Please advise nearest ed for iv antibiotics to treat her possible endometritis vs sepsis * Telephone Encounter - Coleman Matos MD - 01/22/2023 10:54 AM EST LMOM: x 2 advised nearest Ed due to symptoms and fevers advised will need I've antibiotics documented in this encounter Plan of Treatment Upcoming Encounters Date Type Department Care Team (Late st Contact Info) Description 01/26/2023 12:30 PM EST Office Visit Gynecology/Obstetics [place] [address] [place] [address] Coleman Matos MD [address] [place] [address] 02/09/2023 9:00 AM EST Telemedicine Gynecology/Obstetrics [address] [place] [address] Teri Taylor [address] [address] 03/01/2023 10:30 AM EST Office Visit Gynecology/[facility] [address] [facility] [address] Sue [facility] [address] [facility] [place] [address] Health Maintenance Due Date Last Done Comments [...] and were consensually agreed upon. Care Teams Instrument Designer Relationship Specialty Start Date End Date Jourdan Olguin MD [address] [place] [address] PCP - General Family Medicine 12/16/12 documented as of this encounter
[2023-01-23 06:21] LABS: Basophils # (auto) 0.07 K/uL (0.00-0.20); Basophils % (auto) 0.6 %; Eosinophils # (auto) 0.11 K/uL (0.00-0.50); Eosinophils % (auto) 0.9 %; Hematocrit (blood only) 25.7 % (37.0-47.0); Hemoglobin 8.5 g/dl (12.0-16.0); Immature Granulocytes # (auto) 0.09 K/uL (0.01-0.20); Immature Granulocytes % (auto) 0.7 %; Lymphocytes # (auto) 1.81 K/uL (1.20-3.40); Lymphocytes % (auto) 14.4 %; Mean Corpuscular Hemoglobin 30.7 pg (25.0-34.0); Mean Corpuscular Hgb Conc 33.1 g/dL (32.0-36.0); Mean Corpuscular Volume 92.8 fL (80.0-100.0); Mean Platelet Volume 10.6 fL (9.4-12.4); Monocytes # (auto) 0.85 K/uL (0.11-0.59); Monocytes % (auto) 6.8 %; Neutrophils # (auto) 9.62 K/uL (1.40-6.50); Neutrophils % (auto) 76.6 %; Platelet Count 311 K/uL (130-400); RDW Standard Deviation 44.3 fL (36.4-46.3); Red Blood Count 2.77 M/uL (4.20-5.40); White Blood Count 12.55 K/ul (4.8-10.8)
[2023-01-23] MEDS: miSOPROStoL 200 MCG TAB PO SCH ×2 (06:27→11:35)
[2023-01-23 06:44] LABS: Albumin Globulin Ratio 1.2 (0.9-2); Albumin Level 2.9 gm/dl (3.4-5.0); BUN Creatinine Ratio 13.6 (10-20); Bilirubin,Total 0.5 mg/dl (0.2-1.0); Calcium 7.6 mg/dl (8.6-10.3); Creatinine Clr Calc Pharmacy 110.7 ml/min; Est GFR (African American) 131.7 ml/min; Est GFR (Non-African American) 113.6 ml/min; Globulin 2.4 gm/dl (2.5-4.0); Total Protein 5.3 gm/dl (6.0-8.3)
[2023-01-23] MEDS: FERROUS SULFATE 325 MG TAB PO SCH (08:07)
[2023-01-23] MEDS: CLINDAMYCIN/D5W 900 MG/50 ML BAG IV SCH (08:08)
[2023-01-23] MEDS ORDERED: PANTOprazole 40 MG TAB PO SCH (09:00)
[2023-01-23] MEDS ORDERED: PRENATAL VITAMIN 1 TAB PO SCH (09:00)
[2023-01-23] MEDS ORDERED: DOCUSATE SODIUM 100 MG CAP PO SCH (09:00)
--- NOTE | 2023-01-23 09:49 | Pharmacy Report ---
Pharmacy PK ABX Note - Date of Service January 23, 2023 - Assessment and Plan Assessment 37 year old F receiving empiric gentamicin and clindamycin for treatment of suspected endometritis in context of recent period (s/p vaginal delivery 01/16/23) w/ possible retained products of conception. Pertinent microbiologic data includes: blood cultures x 2 pending. Renal function appears to be at baseline. Patient reported fever/chills, WBC elevated at 13 K on admission. Day # 2 of antimicrobial therapy. Plan Gentamicin * Originally dosed at 5 mg/kg based on adjusted body weight, will increase to 5 mg/kg based on actual body weight IV q24h for endometritis dosing * No levels necessary unless therapy is to be extended beyond 72 hours Clindamycin * 900 mg IV q8h - appropriately dosed, no change Pharmacy will continue to follow and will adjust dose/frequency as necessary. Thank you. Pharmacy has transitioned to AUC monitoring for vancomycin. AUC/KAMARI is the preferred PK/PD target and is associated with decreased risk of nephrotoxicity compared to traditional trough targets.
--- NOTE | 2023-01-23 10:51 | Ultrasound Report ---
US pelvic limited CLINICAL HISTORY: Status post vaginal delivery on January 16, 2023. Fever and chills. follow up for retained placenta COMPARISON STUDY: CT of the abdomen and pelvis December 30, 2013. Pelvic ultrasound January 22. FINDINGS: Please note that the ovaries were not imaged on this examination. No free fluid was noted. Uterine enlargement is again noted, as expected in the early post period. A 1.3 cm echogenic f ocus within the mid endometrium contains color flow. This is similar to ultrasound January 22, 2023. No additional abnormalities are identified on this examination. IMPRESSION: No change in a 1.3 cm echogenic focus [facility] the [facility]rium [facility] This may reflect retained products of conception or an endometrial polyp. ACT 112: Negative or not required by law. Electronically signed by: Chema Wu M.D. 01/23/2023 10:50 AM
--- NOTE | 2023-01-23 11:08 | Obstetrical Progress Note ---
Date of Service January 23, 2023 Subjective Ambulation: ambulating normally Voiding: no voiding problems Passing Gas:: Yes Diet Tolerance:: regular diet Feeding Type:: breast feeding Current Pain Level(1-10): 0 doing well. no significant bleeding vaginally. Will f/u on Sunday in office. Physical Exam Constitutional WD/WN, vitals as above Musculoskeletal Extremities: extremities normal to inspection Skin no rashes, warm and dry Neurologic patellar DTR's 2+ bilat, sensation intact Psychiatric A+Ox3, euthymic affect Results & Data Vital Signs (Past 12 Hours) Vital Signs Temp Pulse Pulse Resp BP Pulse Ox O2 Del Method 01/23/23 08:00 37.7 C H 88 18 116/77 98 Room Air 01/23/23 03:40 37.6 C H 102 H 18 104/66 95 Room Air 01/22/23 23:30 37.1 C 106 H 18 100/67 97 Room Air Laboratory Results Laboratory Results - last 72 hr 01/22/23 01/22/23 01/22/23 12:56 12:58 13:54 WBC 13.79 H RBC 3.62 L Hgb 10.9 L Hct 34.2 L MCV 94.5 MCH 30.1 MCHC 31.9 L RDW Std Deviation 45.0 RDW Coeff of Sohan 13.1 Plt Count 359 MPV 10.6 Immature Gran % (Auto) 1.0 Neut % (Auto) 80.5 Lymph % (Auto) 11.2 Toombs % (Auto) 5.9 Eos % (Auto) 0.9 Baso % (Auto) 0.5 Neut # (Auto) 11.09 H Lymph # (Auto) 1.54 [place]ombs # (Auto) 0.82 H Eos # (Auto) 0.13 Baso # (Auto) 0.07 Immature Gran # (Auto) 0.14 Sodium 138 Potassium 3.7 Chloride 105 Carbon Dioxide 25 Anion Gap 8 BUN 6 Creatinine 0.54 L Est Cr Clr Drug Dosing 135.3 Est GFR ( Amer) 140.7 Est GFR (Non-Af Amer) 121.4 BUN/Creatinine Ratio 11.1 Glucose 102 H Lactate Calcium 8.8 Total Bilirubin 0.5 AST 18 ALT 24 Alkaline Phosphatase 125 H Total Protein 7.0 Albumin 3.7 Globulin 3.3 Albumin/Globulin Ratio 1.1 Procalcitonin < 0.05 Adenovirus (PCR) Not Detected B. pertussis DNA (PCR) Not Detected B.parapertussis DNA PCR Not Detected C. pneumoniae DNA (PCR) Not Detected Coronavirus OC43 (PCR) Not Detected Coronavirus HKU1 (PCR) Not Detected Coronavirus 229E (PCR) Not Detected SARS-CoV-2 (PCR) Not Detected Coronavirus NL63 (PCR) Not Detected Human Metapneumovir PCR Not Detected Influenza Type A (PCR) Not Detected Influenza Type B (PCR) Not Detected M. pneumoniae (PCR) Not Detected Parainfluenza 1 (PCR) Not Detected Parainfluenza 2 (PCR) Not Detected Parainfluenza 3 (PCR) Not Detected Parainfluenza 4 (PCR) Not Detected RSV (PCR) Not Detected Entero/Rhino (PCR) Not Detected 01/22/23 01/23/23 14:33 05:51 WBC 12.55 H RBC 2.77 L Hgb 8.5 L Hct 25.7 L MCV 92.8 MCH 30.7 MCHC 33.1 RDW Std Deviation 44.3 RDW Coeff of Sohan 13.0 Plt Count 311 MPV 10.6 Immature Gran % (Auto) 0.7 Neut % (Auto) 76.6 Lymph % (Auto) 14.4 [place]ombs % (Auto) 6.8 Eos % (Auto) 0.9 Baso % (Auto) 0.6 Neut # (Auto) 9.62 H Lymph # (Auto) 1.81 [place]ombs # (Auto) 0.85 H Eos # (Auto) 0.11 Baso # (Auto) 0.07 Immature Gran # (Auto) 0.09 Sodium 136 Potassium 4.0 Chloride 106 Carbon Dioxide 22 Anion Gap 8 BUN 9 Creatinine 0.66 Est Cr Clr Drug Dosing 110.7 Est GFR ( Amer) 131.7 Est GFR (Non-Af Amer) 113.6 BUN/Creatinine Ratio 13.6 Glucose 73 Lactate 1.2 Calcium 7.6 L Total Bilirubin 0.5 AST 15 ALT 16 Alkaline Phosphatase 92 Total Protein 5.3 L D Albumin 2.9 L Globulin 2.4 L Albumin/Globulin Ratio 1.2 Procalcitonin Adenovirus (PCR) B. pertussis DNA (PCR) B.parapertussis DNA PCR C. pneumoniae DNA (PCR) Coronavirus OC43 (PCR) Coronavirus HKU1 (PCR) Coronavirus 229E (PCR) SARS-CoV-2 (PCR) Coronavirus NL63 (PCR) Human Metapneumovir PCR Influenza Type A (PCR) Influenza Type B (PCR) M. pneumoniae (PCR) Parainfluenza 1 (PCR) Parainfluenza 2 (PCR) Parainfluenza 3 (PCR) Parainfluenza 4 (PCR) RSV (PCR) Entero/Rhino (PCR) Diagnostic Findings pelvic ultrasound today remains unchanged
[2023-01-23] MEDS ORDERED: DEXTROSE 5% IV SCH (18:00)
[2023-01-23] MEDS ORDERED: GENTAMICIN SULFATE IV SCH (18:00)
[2023-01-23] MEDS ORDERED: GENTAMICIN SULFATE 300 MG in DEXTROSE 5% 100 ML IV SCH (18:00)
== END 2023-01-23 12:10 | disposition home or self-care (01) | DRG 758 ==
LOC: ED 12:31 → 4E1 16:10
DX: N71.9 Inflammatory disease of uterus, unspecified; O72.2 Delayed and secondary postpartum hemorrhage; Z88.8 Allergy status to other drugs, medicaments and biological substances